=== PATIENT | female | born 1975 | race Caucasian/White ===

== ENCOUNTER → 2017-08-13 | Outpatient (CLI) | payer BC ==
[2017-08-13 10:38] VITALS: BP 133/91; PULSE 99; RESP 20; TEMP 98.4; BMI 40.8
[2017-08-13 12:47] LABS: HCT 42.5 % (34.0-46.0); HGB 14.4 gm/dL (11.4-16.0); MCHC 33.9 g/dL (31.0-37.0); MCV 91.4 fL (80.0-100.0); Mean Platelet Volume 6.7; Platelet Count 326 k/uL (150-450); RBC 4.65 m/uL (3.80-5.40); RDW 13.3 % (11.5-15.5); WBC 7.9 k/uL (3.8-10.6)
[2017-08-13 12:57] LABS: ALT 45 U/L (9-52); AST 34 U/L (14-36); Albumin 4.2 g/dL (3.5-5.0); Alkaline Phosphatase 57 U/L (38-126); Anion Gap 11 mmol/L; Blood Urea Nitrogen 13 mg/dL (7-17); Calcium 9.9 mg/dL (8.4-10.2); Carbon Dioxide 26 mmol/L (22-30); Chloride 102 mmol/L (98-107); Cholesterol 182 mg/dL (<200); Glucose 239 mg/dL (74-99); HDL Cholesterol 48 mg/dL (40-60); LDL Cholesterol,Calculated 77 mg/dL (0-99); Potassium 5.1 mmol/L (3.5-5.1); Sodium 139 mmol/L (137-145); Total Bilirubin 0.2 mg/dL (0.2-1.3); Total Protein 6.8 g/dL (6.3-8.2); Triglycerides 284 mg/dL (<150)
[2017-08-13 18:48] LABS: Iron Saturation 18.43 (12.00-45.00)
[2017-08-13 18:58] LABS: Vitamin D 25 Hydroxy 25.4 ng/mL (30.0-100.0)
[2017-08-13 19:18] LABS: Folate, Serum 12.5 ng/mL
[2017-08-13 22:43] LABS: Hemoglobin A1C 9.2 % (4.0-6.0)
--- NOTE | 2017-10-15 21:25 | P.HPBAR ---
Bariatric H&P - History & Physicial H&P Date: 08/13/17 History & Physicial: Visit/CC: laurelrio ERINN Patient initial contact: Initial weight: 114.85 kg Initial weight in pounds: 253.20 Height: 5 ft 6 in Initial BMI: 40.8 Last weight: Current weight: 114.85 kg Current weight in pounds: 253.20 Current BMI: 40.8 [place] body weight (based on NIH guidelines): 58.967 kg Excess body weight loss: 0.0% The patient is a 42 year-old F who presents for Bariatric Assessment. DATE OF CONSULTATION: 08/13/2017 CHIEF COMPLAINT: Initial bariatric assessment. HISTORY OF PRESENT ILLNESS: Lucinda Baez is a 42 year old female who presents with long standing history of morbid obesity. She has tried Weight Watchers, [employer] diet, including Eat to Live. She is looking into the gastric bypass. Her highest weight is 270 pounds with body mass index of 43.7. She initially lost 50 pounds. Her personal goal is to get to 140-pounds. She reports diarrhea when she gets nervous. She is under medical supervised weight loss since April 08. As a result of her obesity, she has developed diabetes type II. Her blood sugars are usually 200 in the morning. At her height of 5 foot 6, her ideal body weight is 154 pounds. Her body mass index is 40.9. She come in weighing 253 pounds. She is 99 pounds overweight. PAST MEDICAL HISTORY: 1. Morbid obesity. 2. Diabetes type 2. 3. Migraines. 4. Osteoarthritis of the knees. 5. Essential hypertension. 6. Polycystic ovarian disease. PAST SURGICAL HISTORY: 1. Denies any abdominal surgeries. MEDICATIONS: 1. Metformin. 2. Trulicity. 3. Glipizide. 4. Aldactone 5. Lantus 6. Motrin 7. Flexeril. 8. Excedrin ALLERGIES: SULFA. SOCIAL HISTORY: Lifelong nontobacco user. No current alcohol abuse. FAMILY HISTORY: Denies esophageal or stomach cancer. Has obesity in her family as well as diabetes. No Crohns or ulcerative colitis. No lupus. REVIEW OF SYSTEMS: CONSTITUTIONAL: [place] body weight of 154 pounds. Height of 5 feet 6 inches. Present weight of 253 pounds. Body mass index 40.9. She is 99 pounds overweight. Highest weight of 270 pounds with body mass index of 43.7. HEENT: She wears glasses. No reports of dysphagia. No reports of troubles with hearing. ENDOCRINE: Has diabetes type 2, insulin-dependent, controlled on more than insulin as well as 2 additional diabetic oral medications. No reports of hypothyroidism. RESPIRATORY: Has moderate snoring. No asthma. CARDIOVASCULAR: Has hypertensive disease. No recent chest pain or heart attack. GASTROINTESTINAL: Denies blood in stools. Has intermittent diarrhea. MUSCULOSKELETAL: Has osteoarthritis of the knees. No rheumatoid disease. NEURO: No recent stroke or seizure disorder. PSYCH: No depression. No suicidal ideation. HEMATOLOGIC: No recent DVTs or pulmonary emboli in herself or family. SKIN: No cancer. No rash. PHYSICAL EXAM: VITAL SIGNS: 5 feet 6 inches, 253 pounds, body mass index 40.9 Vital Signs 08/13/17 10:28 Temperature 98.4 F Pulse Rate 99 Respiratory 20 Rate Blood Pressure 133/91 GENERAL: Well-developed female in no acute distress. HEENT: No scleral icterus. Extraocular movements grossly intact. NECK: Supple without lymphadenopathy. CHEST: Nonlabored respirations with equal bilateral excursions. CARDIOVASCULAR: Regular rate and rhythm. 2+ pulses. ABDOMEN: Protuberant, soft, nontender, nondistended. MUSCULOSKELETAL: 1+ bilateral pitting edema. No clubbing or cyanosis. NEURO: No focal or lateralizing signs. Cranial nerves 2-12 grossly within normal limits. PSYCH: Appropriate affect. Alert and oriented to person, place and time. SKIN: Well perfused. Good skin turgor. LABS: Pending. ASSESSMENT: 1. Morbid obesity due to excess caloric intake. 2. Body mass index 43.7 to 40.9 3. Diabetes type 2, insulin dependent. 4. Migraines. 5. Osteoarthritis of the knees. 6. Essential hypertension. 7. Polycystic ovarian disease. 8. Sleep disturbance, sleep apnea. 9. Vitamin D deficiency. 10. Hypertriglyceridemia. PLAN: 1. Recommend obtaining a bariatric metabolic panel, as iatrogenic malnutrition with surgical procedures may exacerbate underlying nutritional deficiencies. 2. She is 100 pounds overweight with moderate distress on her joint replacements. I do agree with surgical weight loss for sustained weight loss. 3. Recommend psych assessment. 4. Also recommend cardiac risk assessment for any abnormal EKG 5. Recommend upper endoscopy with history of gastroesophageal reflux disease. 6. For obstructive sleep apnea, recommend evaluation and treatment. 7. Tight glycemic control advised. Minimum goal of HgbA1C less than 10 recommended. 8. The [place] [facility] Data was reviewed for all surgical options including the band, sleeve, gastric bypass, duodenal switch and gastric balloon were reviewed. Benefits and risks of each were reviewed in detail including complication risk score and comorbidity resolution. 9. Recommend followup upon completion of her bariatric metabolic panel and upper endoscopy. ADDENDUM: Laboratory Last Values WBC 7.9 k/uL (3.8-10.6) 08/13/17 11:30 RBC 4.65 m/uL (3.80-5.40) 08/13/17 11:30 Hgb 14.4 gm/dL (11.4-16.0) 08/13/17 11:30 Hct 42.5 % (34.0-46.0) 08/13/17 11:30 MCV 91.4 fL (80.0-100.0) 08/13/17 11:30 MCH 31.0 pg (25.0-35.0) 08/13/17 11:30 MCHC 33.9 g/dL (31.0-37.0) 08/13/17 11:30 RDW 13.3 % (11.5-15.5) 08/13/17 11:30 Plt Count 326 k/uL (150-450) 08/13/17 11:30 Sodium 139 mmol/L (137-145) 08/13/17 11:30 Potassium 5.1 mmol/L (3.5-5.1) 08/13/17 11:30 Chloride 102 mmol/L (98-107) 08/13/17 11:30 Carbon Dioxide 26 mmol/L (22-30) 08/13/17 11:30 Anion Gap 11 mmol/L 08/13/17 11:30 BUN 13 mg/dL (7-17) 08/13/17 11:30 Creatinine 0.60 mg/dL (0.52-1.04) 08/13/17 11:30 Est GFR (MDRD) Af Amer >60 (>60 ml/min/1.73 sqM) 08/13/17 11:30 Est GFR (MDRD) Non-Af >60 (>60 ml/min/1.73 sqM) 08/13/17 11:30 Glucose 239 mg/dL (74-99) H 08/13/17 11:[address] Glu mg/dL 217 08/13/17 11:30 Hemoglobin A1c 9.2 % (4.0-6.0) H 08/13/17 11:30 Calcium 9.9 mg/dL (8.4-10.2) 08/13/17 11:30 Iron 75 ug/dL (50-170) 08/13/17 11:30 TIBC 407 ug/dL (228-460) 08/13/17 11:30 Iron Saturation 18.43 (12.00-45.00) 08/13/17 11:30 Ferritin 65.0 ng/mL (10.0-291.0) 08/13/17 11:30 Total Bilirubin 0.2 mg/dL (0.2-1.3) 08/13/17 11:30 AST 34 U/L (14-36) 08/13/17 11:30 ALT 45 U/L (9-52) 08/13/17 11:30 Alkaline Phosphatase 57 U/L (38-126) 08/13/17 11:30 Total Protein 6.8 g/dL (6.3-8.2) 08/13/17 11:30 Albumin 4.2 g/dL (3.5-5.0) 08/13/17 11:30 Triglycerides 284 mg/dL (<150) H 08/13/17 11:30 Cholesterol 182 mg/dL (<200) 08/13/17 11:30 LDL Cholesterol, Calc 77 mg/dL (0-99) 08/13/17 11:30 HDL Cholesterol 48 mg/dL (40-60) 08/13/17 11:30 Vitamin B1 65 ug/L (38-122) 08/13/17 11:30 Vitamin B12 395.0 pg/mL (200.0-944.0) 08/13/17 11:30 Vitamin D 25-Hydroxy 25.4 ng/mL (30.0-100.0) L 08/13/17 11:30 Folate 12.5 ng/mL 08/13/17 11:30 TSH 2.110 mIU/L (0.465-4.680) 08/13/17 11:30 EKG EKG PERFORMED 08/13/17 11:30 Above reviewed consistent with poor glycemic control, elevated triglycerides, and Vitamind D deficiency. She will benefit from diabetes education and Vitamind D supplemenation. Also findings consistent with hypertriglyceridemia. Thank you for this kind consultation. Past Medical History History of Any Multi-Drug Resistant Organisms: None Reported Smoking Status: Never smoker Surgical - Exam Vital Signs Temp Pulse Resp BP 98.4 F 99 20 133/91 08/13/17 10:28 08/13/17 10:28 08/13/17 10:28 08/13/17 10:28 Results - Labs 08/13/17 11:30 08/13/17 11:30 Bariatric Checklist Checklist: Plan: Checklist: EGD: 1. Hiatal hernia: 2. H. Pylori: HgbA1c: Vitamin D: Smoking: Never smoker Primary care physician referral: Dr Saez Psychiatry clearance: Cardiology clearance: Sleep study: Diet journal: VTE risk score: VTE risk level: Rehab needs at discharge:
== END | disposition home or self-care (01) ==
LOC: BARWHC3 09:27
PROVIDERS: ATTEND Surgery Plastic and Reconstructive Surgery
DX: Z48.815 Encounter for surgical aftercare following surgery on the digestive system (principal); E66.01 Morbid (severe) obesity due to excess calories; E11.9 Type 2 diabetes mellitus without complications; G43.909 Migraine, unspecified, not intractable, without status migrainosus; M17.0 Bilateral primary osteoarthritis of knee; E28.2 Polycystic ovarian syndrome; G47.30 Sleep apnea, unspecified; E55.9 Vitamin D deficiency, unspecified; E89.1 Postprocedural hypoinsulinemia; D50.8 Other iron deficiency anemias; I11.9 Hypertensive heart disease without heart failure; E44.0 Moderate protein-calorie malnutrition; E78.1 Pure hyperglyceridemia; Z68.41 Body mass index [BMI] 40.0-44.9, adult; Z88.2 Allergy status to sulfonamides; Z79.899 Other long term (current) drug therapy; Z79.1 Long term (current) use of non-steroidal anti-inflammatories (NSAID); Z79.82 Long term (current) use of aspirin; Z79.4 Long term (current) use of insulin
CPT/HCPCS: 36415; 80053; 80061; 82306; 82607; 82728; 82746; 83036; 83540; 83550; 84425; 84443; 85027; 93005; 99201

== ENCOUNTER 2017-08-26 06:55 | Day surgery (SDC) | payer BC ==
[2017-08-24 15:48] VITALS: BMI 40.6
[~2017-08-26 06:55] MED LIST: LACTATED RINGERS 1,000 ML IV SCH
[2017-08-26 07:13] VITALS: TEMP 96.9
[2017-08-26 07:23] LABS: Glucose,Whole Blood 223 mg/dL (75-99)
[2017-08-26] MEDS ORDERED: PROPOFOL 10 MG/ML 20 ML VIAL IV ONE (07:33)
[2017-08-26] MEDS ORDERED: LIDOCAINE 1% INJ 10MG/ML (20 ML MDV) ONE (07:33)
--- NOTE | 2017-08-26 07:36 | P.GSHP ---
History of Present Illness H&P Date: 08/26/17 CHIEF COMPLAINT: GERD HISTORY OF PRESENT ILLNESS: The patient is a 42-year-old female who presents reports gastroesophageal reflux disease. Upper endoscopy was offered for further evaluation and management. PAST MEDICAL HISTORY: Please see list. PAST SURGICAL HISTORY: Please see list. MEDICATIONS: Please see list. ALLERGIES: Please see list. SOCIAL HISTORY: No illicit drug use FAMILY HISTORY: No reports of Crohn disease or ulcerative colitis. REVIEW OF ORGAN SYSTEMS: CONSTITUTIONAL: No reports of fevers or chills. GI: Denies any blood in stools or constipation. PHYSICAL EXAM: VITAL SIGNS: Stable GENERAL: Well-developed and pleasant in no acute distress. HEENT: No scleral icterus. Extraocular movements grossly intact. Moist buccal mucosa. NECK: Supple without lymphadenopathy. CHEST: Unlabored respirations. Equal bilateral excursions. CARDIOVASCULAR: Regular rate and rhythm. Distal 2+ pulses. ABDOMEN: Soft, nondistended. MUSCULOSKELETAL: No clubbing, cyanosis, or edema. ASSESSMENT: 1. Gastroesophageal reflux disease PLAN: 1. Recommend proceeding with an upper endoscopy Past Medical History Past Medical History: Diabetes Mellitus Additional Past Medical History / Comment(s): poly-cystic ovary syndrome, migraines. History of Any Multi-Drug Resistant Organisms: None Reported Past Surgical History: No Surgical Hx Reported Past Anesthesia/Blood Transfusion Reactions: Family History of Problems w/ Anesthesia Additional Past Anesthesia/Blood Transfusion Reaction / Comment(s): PT HAS NEVER RECEIVED ANESTHESIA. SISTER=PONV Past Psychological History: Anxiety Additional Psychological History / Comment(s): OCCASIONAL ANXIETY Smoking Status: Never smoker Past Alcohol Use History: Rare Past Drug Use History: None Reported - Past Family History Mother Family Medical History: No Reported History Medications and Allergies Home Medications Medication Instructions Recorded Confirmed Type Cholecalciferol [Vitamin D3] 2,000 tab PO DAILY 08/13/17 08/26/17 History Dulaglutide [Trulicity] 0.75 mg SQ WEEKLY 08/13/17 08/26/17 History metFORMIN HCL ER [Glucophage Xr] 2,000 mg PO AC-SUPPER 08/13/17 08/26/17 History Rtriolp-Uwha-Lstq [id number] 1 each PO Q6HR 08/24/17 08/26/17 History [Excedrin] Control Pills 1 tab PO AC-LUNCH 08/24/17 History Cyclobenzaprine (Unknown Dose 1 tab PO DAILY PRN 08/24/17 History Fiorinal (Unknown Dose) 1 tab PO DAILY PRN 08/24/17 08/26/17 History Ibuprofen [Motrin] 600 mg PO Q6HR PRN 08/24/17 08/26/17 History Insulin Glargine [Lantus] 16 unit SQ HS 08/24/17 08/26/17 History Magnesium 500 mg PO DAILY 08/24/17 08/26/17 History Spironolactone (Unknown Dose) 1 tab PO DAILY 08/24/17 08/26/17 History Vitamin B-12 (Unknown Dose) 1 tab PO DAILY 08/24/17 History diphenhydrAMINE [Benadryl] 25 mg PO HS PRN 08/24/17 08/26/17 History glipiZIDE [Glucotrol] 5 mg PO AC-BRKFST 08/24/17 08/26/17 History Allergies Allergy/AdvReac Type Severity Reaction Status Date / Time Sulfa (Sulfonamide Allergy Swelling Verified 08/24/17 15:32 Antibiotics) Surgical - Exam Vital Signs Temp Pulse Resp BP Pulse Ox 96.9 F L 100 20 144/89 94 L 08/26/17 07:11 08/26/17 07:11 08/26/17 07:11 08/26/17 07:11 08/26/17 07:11 Results - Labs Abnormal Lab Results - Last 24 Hours (Table) 08/26/17 Range/Units 07:18 POC Glucose (mg/dL) 223 H (75-99) mg/dL
[2017-08-26 07:53] VITALS: RESP 16
[2017-08-26] MEDS ORDERED: LABETALOL 5 MG/ML VIAL MDV IVP ONE ×2 (08:05→09:16)
--- NOTE | 2017-08-26 08:09 | P.PCN ---
Date of Procedure: 08/26/17 Description of Procedure: PREOPERATIVE DIAGNOSIS: Gastroesophageal reflux disease. Morbid obesity. POSTOPERATIVE DIAGNOSIS: Morbid obesity. Gastritis. Gastroesophageal reflux disease. OPERATION: Esophagogastroduodenoscopy with biopsies along antrum. SURGEON: Florencia Leigh MD ANESTHESIA: MAC. INDICATIONS: The patient is a 42-year-old female who presents with a history of reflux disease. Benefits and risks of the procedure were described. Informed consent was obtained. DESCRIPTION: The patient was brought into the endoscopy suite and laid in the left lateral decubitus position. An Olympus gastroscope was passed along the posterior oropharynx down to the distal esophagus where the squamocolumnar junction was encountered at 40 cm from the incisors. The stomach was entered and no bile reflux was found. Additional findings are listed below. Biopsies with cold forceps were obtained of the antrum. The first through third portion of the duodenum was examined and unremarkable. Retroflexion of the scope confirmed Hill grade 3 lower esophageal valve. Additionally, the pylorus was tight highly suspicious for gastric outlet obstruction. The squamocolumnar junction demostrated acute LA grade A erosive esophagitis. The stomach was desufflated. The patient tolerated the procedure well. FINDINGS: Squamocolumnar junction 40 cm from the incisors. Diaphragmatic hiatus at 40 cm. Gastritis along antrum. Hill grade 3 lower esophageal valve. LA grade A erosive esophagitis. No active duodenitis. RECOMMENDATIONS: Start medical therapy. Further recommendations pending results of pathology report. Upper endoscopy as needed. Will benefit from antireflux surgical procedure Plan - Discharge Summary Discharge Rx Participant: No New Discharge Prescriptions: New Metoclopramide [Reglan] 10 mg PO ACHS #30 tab No Action metFORMIN HCL ER [Glucophage Xr] 2,000 mg PO AC-SUPPER Dulaglutide [Trulicity] 0.75 mg SQ WEEKLY Cholecalciferol [Vitamin D3] 2,000 tab PO DAILY Magnesium 500 mg PO DAILY glipiZIDE [Glucotrol] 5 mg PO AC-BRKFST Spironolactone (Unknown Dose) 1 tab PO DAILY Fiorinal (Unknown Dose) 1 tab PO DAILY PRN PRN Reason: Migraine Headache Control Pills 1 tab PO AC-LUNCH Insulin Glargine [Lantus] 16 unit SQ HS Vitamin B-12 (Unknown Dose) 1 tab PO DAILY diphenhydrAMINE [Benadryl] 25 mg PO HS PRN PRN Reason: Insomnia Ibuprofen [Motrin] 600 mg PO Q6HR PRN PRN Reason: Pain Iqkfmry-Sotz-Ypsw [id number] [Excedrin] 1 each PO Q6HR Cyclobenzaprine (Unknown Dose 1 tab PO DAILY PRN PRN Reason: Pain Discharge Medication List Cholecalciferol [Vitamin D3] 2,000 tab PO DAILY 08/13/17 [History] Dulaglutide [Trulicity] 0.75 mg SQ WEEKLY 08/13/17 [History] metFORMIN HCL ER [Glucophage Xr] 2,000 mg PO AC-SUPPER 08/13/17 [History] Zkckmor-Cdtc-Yixr [id number] [Excedrin] 1 each PO Q6HR 08/24/17 [History] Control Pills 1 tab PO AC-LUNCH 08/24/17 [History] Cyclobenzaprine (Unknown Dose 1 tab PO DAILY PRN 08/24/17 [History] Fiorinal (Unknown Dose) 1 tab PO DAILY PRN 08/24/17 [History] Ibuprofen [Motrin] 600 mg PO Q6HR PRN 08/24/17 [History] Insulin Glargine [Lantus] 16 unit SQ HS 08/24/17 [History] Magnesium 500 mg PO DAILY 08/24/17 [History] Spironolactone (Unknown Dose) 1 tab PO DAILY 08/24/17 [History] Vitamin B-12 (Unknown Dose) 1 tab PO DAILY 08/24/17 [History] diphenhydrAMINE [Benadryl] 25 mg PO HS PRN 08/24/17 [History] glipiZIDE [Glucotrol] 5 mg PO AC-BRKFST 08/24/17 [History] Metoclopramide [Reglan] 10 mg PO ACHS #30 tab 08/26/17 [Rx] Follow up Appointment(s)/Referral(s): Florencia Leigh MD [STAFF PHYSICIAN] - 09/09/17 (Bariatric center) Patient Instructions/Handouts: *Surgery [facility] - (Anesthesia) Endoscopy Discharge Instructions, Upper Endoscopy (DC), Gastritis (GEN), Gastroesophageal Reflux Disease (DC) Discharge Disposition: HOME SELF-CARE
[2017-08-26] MEDS ORDERED: ENALAPRILAT 1.25 MG/ML 1 ML VIAL IVP ONE ×2 (08:24→08:45)
[2017-08-26 09:25] VITALS: BP 118/76; PULSE 77
== END 2017-08-26 09:35 | disposition home or self-care (01) ==
LOC: ORWHC2ENDO 06:55
PROVIDERS: ATTEND Surgery Plastic and Reconstructive Surgery
DX: K21.0 Gastro-esophageal reflux disease with esophagitis (principal); K29.70 Gastritis, unspecified, without bleeding; E11.9 Type 2 diabetes mellitus without complications; E28.2 Polycystic ovarian syndrome; F41.9 Anxiety disorder, unspecified; G43.909 Migraine, unspecified, not intractable, without status migrainosus; E66.01 Morbid (severe) obesity due to excess calories; Z68.41 Body mass index [BMI] 40.0-44.9, adult; Z88.2 Allergy status to sulfonamides; Z79.3 Long term (current) use of hormonal contraceptives; Z79.82 Long term (current) use of aspirin; Z79.4 Long term (current) use of insulin; Z79.899 Other long term (current) drug therapy
CPT/HCPCS: 43239; 81025; 88305; J2001; J2704

== ENCOUNTER → 2017-09-09 | Outpatient (CLI) | payer BC ==
[2017-09-09 15:45] VITALS: BP 134/86; PULSE 68; TEMP 98.2; BMI 41.2
--- NOTE | 2017-10-21 22:10 | P.PN ---
Subjective Progress Note Date: 09/09/17 DATE OF CONSULTATION: 09/09/2017 CHIEF COMPLAINT: Bariatric assessment. HISTORY OF PRESENT ILLNESS: Lucinda Baez is a 42 year old female who initially presented to the bariatric program August 2017, 1 month ago. She has been seeking a gastric bypass to correct her morbid obesity including diabetes. No reports of nausea or vomiting. She has completed upper endoscopy. No she presents for further follow-up. Her highest weight is 270 pounds with body mass index of 43.7. She is under medical supervised weight loss. At her height of 5 foot 6, her ideal body weight is 154 pounds. She comes in with 2 pound weight gain in 1 month. Her body mass index is 41.2. She come in weighing 255 pounds. She is 101 pounds overweight. Her blood sugars average over 200s. PAST MEDICAL HISTORY: 1. Morbid obesity. 2. Diabetes type 2. 3. Migraines. 4. Osteoarthritis of the knees. 5. Essential hypertension. 6. Polycystic ovarian disease. PAST SURGICAL HISTORY: 1. Denies any abdominal surgeries. 2. Upper endoscopy. MEDICATIONS: 1. Metformin. 2. Trulicity. 3. Glipizide. 4. Aldactone 5. Lantus 6. Motrin 7. Flexeril. 8. Excedrin ALLERGIES: SULFA. SOCIAL HISTORY: Lifelong nontobacco user. No current alcohol abuse. FAMILY HISTORY: Denies esophageal or stomach cancer. Has obesity in her family as well as diabetes. No Crohns or ulcerative colitis. No lupus. REVIEW OF SYSTEMS: CONSTITUTIONAL: [place] body weight of 154 pounds. Height of 5 feet 6 inches. Present weight of 255 pounds. Body mass index 41.2. She is 101 pounds overweight. Highest weight of 270 pounds with body mass index of 43.7. HEENT: She wears glasses. No reports of dysphagia. No reports of troubles with hearing. ENDOCRINE: Has diabetes type 2, insulin-dependent, controlled on more than insulin as well as 2 additional diabetic oral medications. No reports of hypothyroidism. RESPIRATORY: Has moderate snoring. No asthma. CARDIOVASCULAR: Has hypertensive disease. No recent chest pain or heart attack. GASTROINTESTINAL: Denies blood in stools. Has intermittent diarrhea. MUSCULOSKELETAL: Has osteoarthritis of the knees. No rheumatoid disease. NEURO: No recent stroke or seizure disorder. PSYCH: No depression. No suicidal ideation. HEMATOLOGIC: No recent DVTs or pulmonary emboli in herself or family. SKIN: No cancer. No rash. PHYSICAL EXAM: VITAL SIGNS: 5 feet 6 inches, 255 pounds, body mass index 41.2 Vital Signs Temp 98.2 F 09/09/17 15:40 Pulse 68 09/09/17 15:40 Resp BP 134/86 09/09/17 15:40 Pulse Ox GENERAL: Well-developed female in no acute distress. HEENT: No scleral icterus. Extraocular movements grossly intact. NECK: Supple without lymphadenopathy. CHEST: Nonlabored respirations with equal bilateral excursions. CARDIOVASCULAR: Regular rate and rhythm. 2+ pulses. ABDOMEN: Protuberant, soft, nontender, nondistended. MUSCULOSKELETAL: No clubbing or cyanosis or edema. NEURO: No focal or lateralizing signs. Cranial nerves 2-12 grossly within normal limits. PSYCH: Appropriate affect. Alert and oriented to person, place and time. SKIN: Well perfused. Good skin turgor. LABS: Reviewed consistent with poor glycemic control, elevated triglycerides, and Vitamin D deficiency. EKG: Reviewed and abnormal. EGD FINDINGS: Squamocolumnar junction 40 cm from the incisors. Diaphragmatic hiatus at 40 cm. Gastritis along antrum. Hill grade 3 lower esophageal valve. LA grade A erosive esophagitis. No active duodenitis. ASSESSMENT: 1. Morbid obesity due to excess caloric intake. 2. Body mass index 43.7 to 41.2 3. Diabetes type 2, insulin dependent, poorly controlled. 4. Migraines. 5. Osteoarthritis of the knees. 6. Essential hypertension. 7. Polycystic ovarian disease. 8. Sleep disturbance, sleep apnea. 9. Vitamin D deficiency. 10. Hypertriglyceridemia. PLAN: 1. Her EKG is abnormal. Recommend referral to appraiser irrigation tax. 2. Her blood sugars are poorly controlled with hemoglobin A1c of 9.2. Recommend referral to diabetic education. 3. Vitamin D supplementation 50,000 units weekly. 4. With a history of diabetes including gastroesophageal reflux disease, patient is looking into gastric bypass. Objective - Vital Signs Vital signs: Vital Signs Temp 98.2 F 09/09/17 15:40 Pulse 68 09/09/17 15:40 Resp BP 134/86 09/09/17 15:40 Pulse Ox Intake & Output 09/08/17 09/09/17 09/09/17 18:59 06:59 18:59 Weight 115.802 kg
== END | disposition home or self-care (01) ==
LOC: BARWHC3 14:27
PROVIDERS: ATTEND Surgery Plastic and Reconstructive Surgery
DX: Z48.815 Encounter for surgical aftercare following surgery on the digestive system (principal); E66.01 Morbid (severe) obesity due to excess calories; E11.9 Type 2 diabetes mellitus without complications; G43.909 Migraine, unspecified, not intractable, without status migrainosus; M17.0 Bilateral primary osteoarthritis of knee; I10 Essential (primary) hypertension; E55.9 Vitamin D deficiency, unspecified; E28.2 Polycystic ovarian syndrome; G47.30 Sleep apnea, unspecified; E78.1 Pure hyperglyceridemia; Z68.41 Body mass index [BMI] 40.0-44.9, adult; Z79.4 Long term (current) use of insulin; Z79.899 Other long term (current) drug therapy; Z79.1 Long term (current) use of non-steroidal anti-inflammatories (NSAID); Z79.82 Long term (current) use of aspirin; Z88.2 Allergy status to sulfonamides; Z87.19 Personal history of other diseases of the digestive system
CPT/HCPCS: 99211

== ENCOUNTER → 2017-10-12 | Outpatient (CLI) | payer BC ==
[2017-10-12 14:28] VITALS: BMI 41.1
== END | disposition home or self-care (01) ==
LOC: BARWHC3 08:58
PROVIDERS: ATTEND Surgery Plastic and Reconstructive Surgery
DX: E66.01 Morbid (severe) obesity due to excess calories (principal); E10.65 Type 1 diabetes mellitus with hyperglycemia; Z68.41 Body mass index [BMI] 40.0-44.9, adult; Z71.3 Dietary counseling and surveillance
CPT/HCPCS: 97804; 99211

== ENCOUNTER → 2017-10-15 | Outpatient (CLI) | payer BC ==
[2017-10-15 10:08] VITALS: BP 142/100; PULSE 112; TEMP 98.5; BMI 42.0
--- NOTE | 2017-12-05 19:04 | P.PN ---
Subjective Progress Note Date: 10/15/17 DATE: 10/15/2017 CHIEF COMPLAINT: Bariatric assessment. HISTORY OF PRESENT ILLNESS: Lucinda Baez is a 42 year old female who initially presented to the bariatric program August 2017. She has been seeking a gastric bypass to correct her morbid obesity including diabetes. She had an EKG which was abnormal. She has seen the director of curriculum and instruction and now needs a heart cath. Recent blood sugars are 150s. Separately, she complaints of headache. She drinks moderate soda. Her highest weight is 270 pounds with body mass index of 43.7. She is under medical supervised weight loss. At her height of 5 foot 6, her ideal body weight is 154 pounds. She comes in with 5 pound weight gain in 1 month. Her body mass index is 42.0 She come in weighing 260 pounds. She is 106 pounds overweight. PAST MEDICAL HISTORY: 1. Morbid obesity. 2. Diabetes type 2. 3. Migraines. 4. Osteoarthritis of the knees. 5. Essential hypertension. 6. Polycystic ovarian disease. PAST SURGICAL HISTORY: 1. Denies any abdominal surgeries. 2. Upper endoscopy. MEDICATIONS: 1. Metformin. 2. Trulicity. 3. Glipizide. 4. Aldactone 5. Lantus 6. Motrin 7. Flexeril. 8. Excedrin ALLERGIES: SULFA. SOCIAL HISTORY: Lifelong nontobacco user. No current alcohol abuse. FAMILY HISTORY: Denies esophageal or stomach cancer. Has obesity in her family as well as diabetes. No Crohns or ulcerative colitis. No lupus. REVIEW OF SYSTEMS: CONSTITUTIONAL: [place] body weight of 154 pounds. Height of 5 feet 6 inches. Present weight of 260 pounds. Body mass index 42.0. She is 106 pounds overweight. Highest weight of 270 pounds with body mass index of 43.7. HEENT: She wears glasses. No reports of dysphagia. No reports of troubles with hearing. ENDOCRINE: Has diabetes type 2, insulin-dependent, controlled on more than insulin as well as 2 additional diabetic oral medications. No reports of hypothyroidism. RESPIRATORY: Has moderate snoring. No asthma. CARDIOVASCULAR: Has hypertensive disease. No recent chest pain or heart attack. GASTROINTESTINAL: Denies blood in stools. Has intermittent diarrhea. MUSCULOSKELETAL: Has osteoarthritis of the knees. No rheumatoid disease. NEURO: No recent stroke or seizure disorder. PSYCH: No depression. No suicidal ideation. HEMATOLOGIC: No recent DVTs or pulmonary emboli in herself or family. SKIN: No cancer. No rash. PHYSICAL EXAM: VITAL SIGNS: 5 feet 6 inches, 260 pounds, body mass index 42.0. Vital Signs Temp 98.5 F 10/15/17 10:04 Pulse 112 H 10/15/17 10:04 Resp BP 142/100 10/15/17 10:04 Pulse Ox GENERAL: Well-developed female in no acute distress. HEENT: No scleral icterus. Extraocular movements grossly intact. NECK: Supple without lymphadenopathy. CHEST: Nonlabored respirations with equal bilateral excursions. CARDIOVASCULAR: Tachycardic. 2+ pulses. ABDOMEN: Protuberant, soft, nontender, nondistended. MUSCULOSKELETAL: No clubbing or cyanosis or edema. NEURO: No focal or lateralizing signs. Cranial nerves 2-12 grossly within normal limits. PSYCH: Appropriate affect. Alert and oriented to person, place and time. SKIN: Well perfused. Good skin turgor. ASSESSMENT: 1. Morbid obesity due to excess caloric intake. 2. Body mass index 43.7 to 42.0. 3. Diabetes type 2, insulin dependent, poorly controlled. 4. Migraines. 5. Osteoarthritis of the knees. 6. Essential hypertension. 7. Polycystic ovarian disease. 8. Sleep disturbance, sleep apnea. 9. Vitamin D deficiency. 10. Hypertriglyceridemia. 11. Supraventricular tachycardia PLAN: 1. She is pending cardiac catheterization and evaluation. 2. She is pending primary care provider letter. 3. Recommend diabetic education. 4. She is looking into the gastric bypass. Recommend 2 week high-protein low- calorie diet. Objective - Vital Signs Vital signs: Vital Signs Temp 98.5 F 10/15/17 10:04 Pulse 112 H 10/15/17 10:04 Resp BP 142/100 10/15/17 10:04 Pulse Ox Intake & Output 10/14/17 10/15/17 10/15/17 18:59 06:59 18:59 Weight 117.979 kg
== END | disposition home or self-care (01) ==
LOC: BARWHC3 09:26
PROVIDERS: ATTEND Surgery Plastic and Reconstructive Surgery
DX: E66.01 Morbid (severe) obesity due to excess calories (principal); E11.9 Type 2 diabetes mellitus without complications; G43.909 Migraine, unspecified, not intractable, without status migrainosus; M17.0 Bilateral primary osteoarthritis of knee; I10 Essential (primary) hypertension; E28.2 Polycystic ovarian syndrome; G47.30 Sleep apnea, unspecified; E55.9 Vitamin D deficiency, unspecified; E78.1 Pure hyperglyceridemia; I47.1 Supraventricular tachycardia; Z79.84 Long term (current) use of oral hypoglycemic drugs; Z68.41 Body mass index [BMI] 40.0-44.9, adult; Z79.899 Other long term (current) drug therapy; Z79.4 Long term (current) use of insulin; Z88.2 Allergy status to sulfonamides; Z79.1 Long term (current) use of non-steroidal anti-inflammatories (NSAID); Z83.3 Family history of diabetes mellitus
CPT/HCPCS: 99211

== ENCOUNTER → 2017-12-10 | Outpatient (CLI) | payer BC ==
[2017-12-10 15:40] LABS: Basophils % (A) 0 %; Eosinophils # (A) 0.2 k/uL (0-0.7); Eosinophils % (A) 2 %; HCT 44.4 % (34.0-46.0); HGB 15.1 gm/dL (11.4-16.0); Lymphocytes # (A) 2.8 k/uL (1.0-4.8); Lymphocytes % (A) 31 %; MCH 29.6 pg (25.0-35.0); Mean Platelet Volume 6.6; Monocytes # (A) 0.3 k/uL (0-1.0); Monocytes % (A) 4 %; Neutrophils # (A) 5.6 k/uL (1.3-7.7); Neutrophils % (A) 62 %; Platelet Count 327 k/uL (150-450); RDW 12.5 % (11.5-15.5)
[2017-12-10 16:01] LABS: ALT 125 U/L (9-52); AST 80 U/L (14-36); Albumin 4.6 g/dL (3.5-5.0); Alkaline Phosphatase 55 U/L (38-126); Anion Gap 12 mmol/L; Blood Urea Nitrogen 16 mg/dL (7-17); Calcium 10.4 mg/dL (8.4-10.2); Carbon Dioxide 26 mmol/L (22-30); Chloride 101 mmol/L (98-107); Glucose 123 mg/dL (74-99); Potassium 4.7 mmol/L (3.5-5.1); Sodium 139 mmol/L (137-145); Total Bilirubin 0.5 mg/dL (0.2-1.3); Total Protein 7.5 g/dL (6.3-8.2)
== END ==
LOC: LABPAT 15:17
PROVIDERS: ATTEND Surgery Plastic and Reconstructive Surgery
DX: Z01.812 Encounter for preprocedural laboratory examination (principal)
CPT/HCPCS: 36415; 80053; 85025

== ENCOUNTER 2017-12-21 07:30 | Inpatient (IN) | payer BC ==
--- NOTE | 2017-12-20 12:43 | P.GSHP ---
History of Present Illness H&P Date: 12/21/17 DATE: 12/21/2017 CHIEF COMPLAINT: Morbid obesity HISTORY OF PRESENT ILLNESS: Lucinda Baez is a 42 year old female who initially presented to the bariatric program August 2017. She has been seeking a gastric bypass to correct her morbid obesity including diabetes. She has completed diabetic education. She had an EKG which was abnormal followed by a normal stress test. She had been cleared by her body recall instructor October 2017. Her highest weight is 270 pounds with body mass index of 43.7. She completed medical supervised weight loss. At her height of 5 foot 6, her ideal body weight is 154 pounds. PAST MEDICAL HISTORY: 1. Morbid obesity. 2. Diabetes type 2. 3. Migraines. 4. Osteoarthritis of the knees. 5. Essential hypertension. 6. Polycystic ovarian disease. PAST SURGICAL HISTORY: 1. Denies any abdominal surgeries. 2. Upper endoscopy. MEDICATIONS: 1. Metformin. 2. Trulicity. 3. Glipizide. 4. Aldactone 5. Lantus 6. Motrin 7. Flexeril. 8. Excedrin ALLERGIES: SULFA. SOCIAL HISTORY: Lifelong nontobacco user. No current alcohol abuse. FAMILY HISTORY: Denies esophageal or stomach cancer. Has obesity in her family as well as diabetes. No Crohns or ulcerative colitis. No lupus. REVIEW OF SYSTEMS: CONSTITUTIONAL: [place] body weight of 154 pounds. Height of 5 feet 6 inches. Present weight of 260 pounds. Body mass index 42.0. She is 106 pounds overweight. Highest weight of 270 pounds with body mass index of 43.7. HEENT: She wears glasses. No reports of dysphagia. No reports of troubles with hearing. ENDOCRINE: Has diabetes type 2, insulin-dependent, controlled on more than insulin as well as 2 additional diabetic oral medications. No reports of hypothyroidism. RESPIRATORY: Has moderate snoring. No asthma. CARDIOVASCULAR: Has hypertensive disease. No recent chest pain or heart attack. GASTROINTESTINAL: Denies blood in stools. Has intermittent diarrhea. MUSCULOSKELETAL: Has osteoarthritis of the knees. No rheumatoid disease. NEURO: No recent stroke or seizure disorder. PSYCH: No depression. No suicidal ideation. HEMATOLOGIC: No recent DVTs or pulmonary emboli in herself or family. SKIN: No cancer. No rash. PHYSICAL EXAM: VITAL SIGNS: 5 feet 6 inches, 260 pounds, body mass index 42.0. GENERAL: Well-developed female in no acute distress. HEENT: No scleral icterus. Extraocular movements grossly intact. NECK: Supple without lymphadenopathy. CHEST: Nonlabored respirations with equal bilateral excursions. CARDIOVASCULAR: Regular rate. Regular rhythm. 2+ pulses. ABDOMEN: Protuberant, soft, nontender, nondistended. MUSCULOSKELETAL: No clubbing or cyanosis or edema. NEURO: No focal or lateralizing signs. Cranial nerves 2-12 grossly within normal limits. PSYCH: Appropriate affect. Alert and oriented to person, place and time. SKIN: Well perfused. Good skin turgor. ASSESSMENT: 1. Morbid obesity due to excess caloric intake. 2. Body mass index 43.7, initial. 3. Diabetes type 2, insulin dependent. 4. Migraines. 5. Osteoarthritis of the knees. 6. Essential hypertension. 7. Polycystic ovarian disease. 8. Sleep disturbance, sleep apnea. 9. Vitamin D deficiency. 10. Hypertriglyceridemia. 11. Supraventricular tachycardia PLAN: 1. Bariatric options were reviewed which she selected for a gastric bypass. Benefits and risks were described. Risks including bleeding, infection, need for further surgery, leaks including nutritional deficiencies were described. 2. DVT prophylaxis. 3. Antibiotic prophylaxis. 4. Inpatient hospitalization over 2 nights described. 5. Robotic-assisted approach reviewed. Past Medical History Past Medical History: Diabetes Mellitus, Hypertension, Neurologic Disorder Additional Past Medical History / Comment(s): poly-cystic ovary syndrome, migraines. History of Any Multi-Drug Resistant Organisms: None Reported Past Surgical History: No Surgical Hx Reported Additional Past Surgical History / Comment(s): egd Past Anesthesia/Blood Transfusion Reactions: No Reported Reaction, Family History of Problems w/ Anesthesia Additional Past Anesthesia/Blood Transfusion Reaction / Comment(s): . SISTER= PONV Smoking Status: Never smoker - Past Family History Mother Family Medical History: No Reported History Medications and Allergies Home Medications Medication Instructions Recorded Confirmed Type Dulaglutide [Trulicity] 1.25 mg SQ MO 08/13/17 12/14/17 History metFORMIN HCL ER [Glucophage Xr] 2,000 mg PO AC-SUPPER 08/13/17 12/14/17 History Lddyeio-Eait-Axjc [phone] 1 each PO Q6HR 08/24/17 12/14/17 History [Excedrin] Ibuprofen [Motrin] 600 mg PO Q6HR PRN 08/24/17 12/14/17 History Insulin Glargine [Lantus] 30 unit SQ HS 08/24/17 12/14/17 History Magnesium 500 mg PO DAILY 08/24/17 12/14/17 History diphenhydrAMINE [Benadryl] 25 mg PO HS PRN 08/24/17 12/14/17 History glipiZIDE [Glucotrol] 10 mg PO AC-BRKFST 08/24/17 12/14/17 History Spironolactone [Aldactone] 50 mg PO DAILY 10/15/17 12/14/17 History Cholecalciferol (Vitamin D3) 10,000 unit PO DAILY 12/14/17 12/14/17 History [Vitamin D3] Cyclobenzaprine [Flexeril] 10 mg PO HS 12/14/17 12/14/17 History Multivitamins, Thera [Multivitamin 1 tab PO DAILY 12/14/17 12/14/17 History (formulary)] Allergies Allergy/AdvReac Type Severity Reaction Status Date / Time Sulfa (Sulfonamide Allergy Swelling Verified 12/14/17 09:18 Antibiotics)
[~2017-12-21 07:30] MED LIST changes: +ACETAMINOPHEN IV (For NPO) 1,000 MG in EMPTY BAG 1 BAG IVPB ONE; +ALVIMOPAN 12 MG CAPSULE PO ONE; +CHLORHEXIDINE GLUCONATE 15 ML CUP MUCOUS MEM ONE; +DEXAMETHASONE SOD PHOSPHATE 10 MG/ML 1 ML VIAL IV ONE; +ENOXAPARIN 40 MG/0.4 ML SYRINGE SQ STA; -LACTATED RINGERS 1,000 ML IV SCH; +MIDAZOLAM 2 MG/2 ML VIAL IV PRN; +PANTOPRAZOLE 40 MG/10 ML VIAL IV STA; +SCOPOLAMINE 1.5MG/72HR PATCH TRANSDERM STA; +ceFAZolin IN SWFI 2 GM/20 ML SYRINGE IVP ONE
[2017-12-21] MEDS ORDERED: LIDOCAINE 1% 20 ML VIAL (10MG/ML) FOR IV START INTRADERMA ONE (11:01)
[2017-12-21] MEDS ORDERED: ONDANSETRON 4 MG/2 ML VIAL IVP ONE (11:06)
[2017-12-21] MEDS: LACTATED RINGERS 1,000 ML IV SCH (11:07)
[2017-12-21 11:24] LABS: Glucose,Whole Blood 76 mg/dL (75-99)
[2017-12-21 11:27] LABS: Potassium 4.7 mmol/L (3.5-5.1)
[2017-12-21] MEDS ORDERED: PROPOFOL 10 MG/ML 20 ML VIAL IV ONE (12:17)
[2017-12-21] MEDS ORDERED: NEOSTIGMINE 1 MG/ML 10 ML VIAL ONE (12:17)
[2017-12-21] MEDS ORDERED: LIDOCAINE 1% INJ 10MG/ML (20 ML MDV) ONE (12:17)
[2017-12-21] MEDS ORDERED: ROCURONIUM BROMIDE 10 MG/ML 10 ML VIAL IV ONE (12:17)
[2017-12-21] MEDS ORDERED: ONDANSETRON 4 MG/2 ML VIAL ONE (12:17)
[2017-12-21] MEDS ORDERED: SUCCINYLCHOLINE CHLORIDE VIAL 200 MG/10 ML VIAL IV ONE (12:17)
[2017-12-21] MEDS ORDERED: fentaNYL (PF) 50 MCG/ML 2 ML AMP ONE (12:17)
[2017-12-21] MEDS ORDERED: GLYCOPYRROLATE 0.2 MG/ML 2 ML VIAL ONE (12:17)
[2017-12-21] MEDS ORDERED: MEPERIDINE 50 MG/ML SYRINGE ONE (12:17)
[2017-12-21] MEDS ORDERED: MIDAZOLAM 2 MG/2 ML VIAL ONE (12:17)
[2017-12-21] MEDS ORDERED: BUPIVACAINE (PF) 0.25% 30 ML VIAL SQ ONE (12:35)
--- NOTE | 2017-12-21 15:50 | P.PCN ---
Date of Procedure: 12/21/17 Preoperative Diagnosis: Morbid obesity Postoperative Diagnosis: Same Procedure(s) Performed: Robotic gastric bypass, 100 cm Pedro limb, intraoperative EGJ Anesthesia: GETA, local Surgeon: Florencia Leigh Estimated Blood Loss (ml): 10 Pathology: none sent Condition: stable Disposition: floor Operative Findings: 1. Fatty liver disease 2. Negative leak test 3. Thoracic length, xiphoid to umbilicus 17 cm 4. Four-port technique 5. Reinforcement sutures at 3:00 and 11:00
[2017-12-21] MEDS: fentaNYL (PF) 50 MCG/ML 2 ML AMP IV PRN ×2 (16:12→16:53)
[2017-12-21 16:28] LABS: Glucose,Whole Blood 200 mg/dL (75-99)
[2017-12-21] MEDS ORDERED: MEPERIDINE 50 MG/ML SYRINGE IVP ONE (16:59)
[2017-12-21 17:18] VITALS: RESP 16
[2017-12-21] MEDS: MORPHINE SULFATE/PF 10MG/10ML VL IVP PRN ×3 (18:23→22:16)
[2017-12-21] MEDS: SODIUM CHLORIDE 0.9% 1,000 ML IV SCH (18:24)
[2017-12-21 19:05] VITALS: BMI 39.2
[2017-12-21] MEDS ORDERED: NALOXONE 0.4 MG/ML 1 ML VIAL IV PRN (21:51)
[2017-12-21] MEDS ORDERED: ONDANSETRON 4 MG/2 ML VIAL IVP PRN (21:51)
[2017-12-21] MEDS ORDERED: diphenhydrAMINE 50 MG/ML 1 ML VIAL IVP PRN (21:51)
[2017-12-21] MEDS ORDERED: ACETAMINOPHEN IV (For NPO) 1,000 MG in EMPTY BAG 1 BAG IVPB ONE (22:00)
[2017-12-21 23:58] LABS: Glucose,Whole Blood 137 mg/dL (75-99)
[2017-12-22] MEDS: SIMETHICONE 40 MG/0.6 ML DROPS 2,000 MG/30 ML BOTTLE PO SCH ×3 (00:03→12:55)
[2017-12-22] MEDS: AMPICILLIN-SULBACTAM 3 GM in SODIUM CHLORIDE 0.9% 100 ML IVPB SCH ×2 (00:03→04:52)
[2017-12-22] MEDS: HYOSCYAMINE ORAL DROPS 1.875 MG/15 ML BOTTLE PO SCH ×3 (00:03→12:54)
[2017-12-22] MEDS: 0.9% NACL WITH KCL 20 MEQ/L 1,000 ML IV SCH ×2 (00:03→05:39)
[2017-12-22] MEDS: INSULIN ASPART 100 UNIT/ML 1 ML 10 ML VIAL SQ SCH ×2 (01:08→05:42)
[2017-12-22] MEDS: SODIUM CHLORIDE 0.9% 1,000 ML IV SCH (01:09)
[2017-12-22] MEDS: MORPHINE SULFATE/PF 10MG/10ML VL IVP PRN ×2 (01:19→04:52)
[2017-12-22 05:37] LABS: Glucose,Whole Blood 150 mg/dL (75-99)
[2017-12-22 06:57] LABS: Basophils % (A) 0 %; Eosinophils # (A) 0.1 k/uL (0-0.7); Eosinophils % (A) 0 %; HCT 36.6 % (34.0-46.0); Lymphocytes # (A) 1.1 k/uL (1.0-4.8); Lymphocytes % (A) 8 %; MCH 30.7 pg (25.0-35.0); MCHC 35.6 g/dL (31.0-37.0); MCV 86.1 fL (80.0-100.0); Mean Platelet Volume 6.4; Monocytes # (A) 0.5 k/uL (0-1.0); Monocytes % (A) 4 %; Neutrophils # (A) 12.1 k/uL (1.3-7.7); Neutrophils % (A) 87 %; Platelet Count 280 k/uL (150-450); RBC 4.25 m/uL (3.80-5.40); RDW 12.9 % (11.5-15.5); WBC 13.9 k/uL (3.8-10.6)
[2017-12-22 07:14] LABS: Anion Gap 9 mmol/L; Blood Urea Nitrogen 9 mg/dL (7-17); Calcium 8.8 mg/dL (8.4-10.2); Carbon Dioxide 20 mmol/L (22-30); Chloride 108 mmol/L (98-107); Phosphorus 3.1 mg/dL (2.5-4.5); Potassium 4.4 mmol/L (3.5-5.1); Sodium 137 mmol/L (137-145)
--- NOTE | 2017-12-22 07:42 | P.PN ---
Subjective Progress Note Date: 12/22/17 CHIEF COMPLAINT: Morbid obesity HISTORY OF PRESENT ILLNESS: Lucinda Baez is a 42 year old female s/p gastric bypass. She complains primarily of back pain. No reports of nausea or vomiting. Intraoperative leak test was negative for leaks. She reports appropriated left upper incisional discomfort. No fevers or chill.s PHYSICAL EXAM: GENERAL: Well-developed female in no acute distress. HEENT: No scleral icterus. Extraocular movements grossly intact. NECK: Supple without lymphadenopathy. CHEST: Nonlabored respirations with equal bilateral excursions. CARDIOVASCULAR: Regular rate. Regular rhythm. 2+ pulses. ABDOMEN: Soft, nondistended. Dressing intact. Incisions well-approximated. No peritonitis. MUSCULOSKELETAL: No clubbing or cyanosis or edema. NEURO: No focal or lateralizing signs. Cranial nerves 2-12 grossly within normal limits. PSYCH: Appropriate affect. Alert and oriented to person, place and time. SKIN: Well perfused. Good skin turgor. ASSESSMENT: 1. Morbid obesity due to excess caloric intake. 2. Body mass index 43.7, initial. 3. Diabetes type 2, insulin dependent. 4. Migraines. 5. Osteoarthritis of the knees. 6. Essential hypertension. 7. Polycystic ovarian disease. 8. Sleep disturbance, sleep apnea. 9. Vitamin D deficiency. 10. Hypertriglyceridemia. 11. Supraventricular tachycardia PLAN: 1. Bariatric clears. 2. Adjustment of diabetic medications. 3. Possible discharge home when tolerating diet. 4. Follow up in bariatric office in 48 hrs. Objective - Vital Signs Vital signs: Vital Signs Temp 98.1 F 12/22/17 00:57 Pulse 112 H 12/22/17 00:57 Resp 16 12/22/17 00:57 BP 116/75 12/22/17 00:57 Pulse Ox 95 12/22/17 00:57 Intake & Output 12/21/17 12/22/17 12/22/17 18:59 06:59 18:59 Intake Total 1550 Output Total 210 1700 Balance 1340 -1700 Weight 110.1 kg Intake: IV 1550 Output: Urine 200 1700 Estimated Blood Loss 10 Other: Voiding Method Indwelling Catheter - Labs CBC & Chem 7: 12/22/17 06:19 12/22/17 06:19 Labs: Abnormal Lab Results - Last 24 Hours (Table) 03/12/21/17 12/22/17 Range/Units 16:25 23:56 05:34 WBC (3.8-10.6) k/uL Neutrophils # (1.3-7.7) k/uL Chloride (98-107) mmol/L Carbon Dioxide (22-30) mmol/L POC Glucose (mg/dL) 200 H 137 H 150 H (75-99) mg/dL 12/22/17 12/22/17 Range/Units 06:19 06:19 WBC 13.9 H (3.8-10.6) k/uL Neutrophils # 12.1 H (1.3-7.7) k/uL Chloride 108 H (98-107) mmol/L Carbon Dioxide 20 L (22-30) mmol/L POC Glucose (mg/dL) (75-99) mg/dL Assessment and Plan (1) Morbid obesity due to excess calories Current Visit: Yes Status: Acute Code(s): E66.01 - MORBID (SEVERE) OBESITY DUE TO EXCESS CALORIES SNOMED Code(s): 972341252 (2) Obesity, morbid, BMI 40.0-49.9 Current Visit: Yes Status: Acute Code(s): E66.01 - MORBID (SEVERE) OBESITY DUE TO EXCESS CALORIES SNOMED Code(s): 837881752 (3) Sleep apnea Current Visit: Yes Status: Acute Code(s): G47.30 - SLEEP APNEA, UNSPECIFIED SNOMED Code(s): 55024379 (4) Diabetes type 2, controlled Current Visit: Yes Status: Acute Code(s): E11.9 - TYPE 2 DIABETES MELLITUS WITHOUT COMPLICATIONS SNOMED Code(s): 92450426 (5) Hypertension Current Visit: Yes Status: Acute Code(s): I10 - ESSENTIAL (PRIMARY) HYPERTENSION SNOMED Code(s): 92905927
[2017-12-22] MEDS: HYDROcodone/APAP 15 ML SOLUTION PO PRN ×2 (07:54→12:55)
[2017-12-22] MEDS ORDERED: 1: MVI, ADULT NO.4 WITH VIT K 10 ML, THIAMINE 100 MG, FOLIC ACID 1 MG, POTASSIUM CHLORID IV SCH ×6 (08:00)
[2017-12-22] MEDS ORDERED: ALBUTEROL NEBULIZED 2.5 MG/3 ML INHALATION SCH (08:00)
[2017-12-22 10:22] VITALS: BP 118/77; PULSE 95; TEMP 98.4
[2017-12-22] MEDS ORDERED: MORPHINE ORAL SOLN 10 MG/5 ML CUP PO PRN ×2 (11:38→11:39)
[2017-12-23] MEDS ORDERED: BISACODYL 5 MG TABLET.DR PO PRN (08:00)
--- NOTE | 2017-12-27 22:00 | P.OP ---
Date of Procedure: 12/21/17 Description of Procedure: Date of Procedure: 12/21/17 SURGEON: BRYON REYES MD BIRD KEEPER: 1. ZI MACHADO 2. LARA SARAH 3. EM CASTLE PREOPERATIVE DIAGNOSES: 1. Morbid obesity due to excess caloric intake. 2. Body mass index 43.7, initial. 3. Diabetes type 2, insulin dependent. 4. Migraines. 5. Osteoarthritis of the knees. 6. Essential hypertension. 7. Polycystic ovarian disease. 8. Sleep disturbance, sleep apnea. 9. Vitamin D deficiency. 10. Hypertriglyceridemia. 11. Supraventricular tachycardia POSTOPERATIVE DIAGNOSES: 1. Morbid obesity due to excess caloric intake. 2. Body mass index 43.7, initial. 3. Diabetes type 2, insulin dependent. 4. Migraines. 5. Osteoarthritis of the knees. 6. Essential hypertension. 7. Polycystic ovarian disease. 8. Sleep disturbance, sleep apnea. 9. Vitamin D deficiency. 10. Hypertriglyceridemia. 11. Supraventricular tachycardia 12. Hepatomegaly 13. Liver disease 14. Abnormal liver enzymes. OPERATION: 1. Robotic assisted da Gil Xi laparoscopic Corina-en-Y gastric bypass, 100 cm antecolic antegastric Corina limb, with 25 mm EEA. 2. Intraoperative esophagogastrojejunoscopy. Anesthesia: GETA, local Surgeon: Bryon Reyes Estimated Blood Loss (ml): 10 Pathology: none sent Condition: stable Disposition: floor INDICATIONS: Lucinda Baez is a 42 year old female who initially presented to the bariatric program August 2017. She has been seeking a gastric bypass to correct her morbid obesity including diabetes. She has completed diabetic education. She had an EKG which was abnormal followed by a normal stress test. She had been cleared by her winery cellar hand October 2017. Her highest weight is 270 pounds with body mass index of 43.7. She completed medical supervised weight loss. At her height of 5 foot 6, her ideal body weight is 154 pounds. A second-generation bariatric consent form was described in detail including the possibility of protein malnutrition, leaks, gastrojejunal stricture, venous thrombosis, need for further surgery for which she demonstrated understanding. Benefits and risks of the procedure were described at length. Informed consent was obtained. DESCRIPTION: The patient was brought into the operating room theater. She was placed on a split leg table. She had received Lovenox subcutaneously for DVT prophylaxis. Additionally she Peridex oral solution as an oral decontaminant was placed per anesthesia. After general induction, the abdomen was prepped and draped in standard sterile fashion. Ioban draping was placed along the abdomen. A robotic da Gil Xi system was prepped and primed. The xiphoid to umbilicus was measured of 17 cm. Proposed port sites were marked with indelible marker along the anterior axillary line bilaterally, mid clavicular line bilaterally with each port marked 10 cm from each other. The medical assistant instructor port was marked along the right lateral lower abdominal wall. The robotic stapler port was marked for the right midclavicular line including along the left midclavicular line. A 5 mm 0 degrees laparoscopic trocar entry was performed along the left upper quadrant. The abdomen was insufflated to 15 mmHg pressure, which she tolerated well. Diagnostic laparoscopy demonstrated no injury to bowel, viscera, or mesentery. The liver surface was remarkable for fatty liver disease and hepatomegaly. An 8 mm camera port was placed left lateral to the umbilicus at the epigastrium , 17 cm distal to the xiphoid. Next, 12-mm robot stapler port was placed along the right mid abdomen. An 12 mm port was exchanged along the left upper quadrant. An 8 mm port was placed on the left lateral abdominal wall under direct localization. Please note that the ports were placed 18 to 20 cm away from the target anatomy of the stomach. Care was taken to check that each robotic arm was safely away from collision with the bed or the patient. At the epigastrium, a medium sized Cindi liver retractor was placed under direct visualization with the Iron Personnel Technician placed under the right shoulder of the patient. The patient was repositioned in reverse Trendelenburg position at 14-degress after lowering the bed. The robot was docked over the patient. Using grasper for arm 1, a grasper for arm 3, including vessel sealer for arm 4 , the robotic system was docked and primed as described. Instruments were interchanged by the medical assistant instructor including endoscissors, the needle home delivery driver, and stapler. I had sat at the console. Next, the transverse mesocolon was reflected into the upper abdomen preparing for the jejunojejunostomy portion of the case. The ligament of Treitz was identified and measured 60 cm antegrade and marked using 2-0 Vicryl. The jejunum was divided at the 60 cm point using 45-mm white loads above the suture measurement. The biliopancreatic limb was held in place. The Corina limb was measured 100 cm in an antegrade fashion to avoid tension along the proposed gastrojejunal anastomosis. At 100 cm along the anti-mesenteric border of the Corina limb, a jejunojejunostomy was proposed whereby enterotomies were created along the biliopancreatic limb including the Corina limb using a Bovie cautery. A stay suture of 2-0 Vicryl was placed to align and create the anastomosis. The enterotomies along the anti-mesenteric borders were created followed by unidirectional fire from the patient's right side using 2 - 45 mm white load Smart technology robotic stapler. The jejunojejunostomy was found to be hemostatic. The enterotomy was closed after horizontal mattress stitch of 2-0 silk used to elevate the enterotomy followed by closure with the robotic stapler white load. The jejunal limb was temporarily tacked along the left upper quadrant. Attention was now brought to the creation of the gastrojejunostomy. Along the lesser curvature of the stomach between the second and third veins, dissection was made along the retrogastric space to allow first firing of the robotic staple. Moderate posterior stomach were identified, hence increasing the complexity of her case. Blue loads of 45 mm staplers were used to divide the stomach to create the gastric pouch. The patient was then prepared for placement of a Orvil. The patient was Mallampati 2. A 25-mm Orvil was selected for placement by the nurse manager managed care. The Orvil tubing was placed anterior to the staple line of the gastric pouch and brought out through the left inferior lateral port. I re-scrubbed into the case. The robotic arms were temporarily undocked. The Orvil was then carefully and successfully navigated with the help of the nurse manager managed care into the gastric pouch. The sutures were identified and divided. The tubing was from the 25 mm anvil. As the Orvil had been placed, the blind jejunal limb was brought proximally into the upper abdomen. No torsion was found upon the Corina limb. No tension was identified as the limb was brought along the upper abdomen. The blind jejunal limb was previously opened using endo -scissors with cautery. The 25-mm EEA stapler was brought through the left anterior lateral port site from the left side. The EEA stapler was brought through the open jejunal limb and its needle was deployed at the antimesenteric border where the anvil were mated for approximately 1 minute upon firing. The stapler was removed after irrigating the shaft of the instrument with warm normal saline. Donuts were found to be intact and on both sides. The da Gil Xi robot arms were then re-docked. I sat at the console. The open jejunal limb defect was closed using 45 mm white loads after releasing any tension from the blind jejunal limb. Care was taken to avoid any long blind limb to avoid candycane syndrome. Reinforcement sutures were placed along the gastrojejunal anastomosis at the 3:00 and 11:00 position using 3-0 Vicryl. The Calvillo and jejunojejunostomy mesenteric defects were obliterated by her intra-abdominal fat. I then went to the head of the bed to perform the esophagogastrojejunoscopy and a leak test. An Olympus gastroscope was passed along the posterior oropharynx which was unremarkable for any injury to the vocal cords. The scope was passed down to the proximal portion of the pouch, whereby no active bleeding was encountered. Excellent visualization of the gastrojejunostomy anastomosis, including the Corina limb was encountered with endoscopic image obtained. The anastomosis was found to be patent. The gastrointestinal tract was desufflated. No evidence of intraoperative leak was encountered as the gastric pouch and anastomosis were submerged under normal saline solution. The robot was then undocked. I then went back to the bedside of the patient, whereby with coordinated effort of the medical assistant instructor, irrigation was aspirated from the upper abdominal cavity. Tisseel was placed circumferentially over the anastomosis of the gastrojejunostomy. The fascial defect of the EEA stapler was closed using Felix Garcia and 0 Vicryl. All instruments and pneumoperitoneum were evacuated from the abdominal cavity. The port correlating with the EEA stapler device was cleansed with normal saline solution and hydrogen peroxide. The rest of incisions were reapproximated using 4-0 Monocryl in an interrupted subcuticular fashion. Local anesthetic was infiltrated along the skin for postop analgesia. Dermabond was applied to the skin. OptiFoam dressing was placed along the EEA stapler site. At the end of the procedure, needle, sponge and instrument count had been verified correct by the surgical services assistant. She had tolerated the procedure well and was extubated and taken to the postanesthesia unit in stable condition. Intraoperative findings were described to the patient's family who were very pleased with the level of care. Total console time 112 minutes. Operative Findings: 1. Biliopancreatic limb 60 cm 2. Bypass performed using 100 cm corina limb secondary to avoid increased tension at 150 cm. 3. Payne defect and jejunojejunostomy defect obliterated by moderate intra- abdominal fat. 4. Leak test negative with gastrojejunal anastomosis patent and hemostatic. 5. Fatty liver disease 6. Thoracic length, xiphoid to umbilicus 17 cm 7. Four-port technique 8. Reinforcement sutures at 3:00 and 11:00
--- NOTE | 2017-12-27 22:02 | P.DS ---
Providers Date of admission: 12/21/17 10:17 Expected date of discharge: 12/22/17 Attending physician: Florencia Leigh Primary care physician: Winston Saez - Discharge Diagnosis(es) (1) Morbid obesity due to excess calories Status: Acute (2) Obesity, morbid, BMI 40.0-49.9 Status: Acute (3) Sleep apnea Status: Acute (4) Diabetes type 2, controlled Status: Acute (5) Hypertension Status: Acute Hospital Course: POSTOPERATIVE DIAGNOSES: 1. Morbid obesity due to excess caloric intake. 2. Body mass index 43.7, initial. 3. Diabetes type 2, insulin dependent. 4. Migraines. 5. Osteoarthritis of the knees. 6. Essential hypertension. 7. Polycystic ovarian disease. 8. Sleep disturbance, sleep apnea. 9. Vitamin D deficiency. 10. Hypertriglyceridemia. 11. Supraventricular tachycardia 12. Hepatomegaly 13. Liver disease 14. Abnormal liver enzymes. COURSE: Lucinda Baez is a 42 year old female who initially presented to the bariatric program August 2017. She has been seeking a gastric bypass to correct her morbid obesity including diabetes. She has completed diabetic education. She had an EKG which was abnormal followed by a normal stress test. She had been cleared by her sports broadcasting internship October 2017. Her highest weight is 270 pounds with body mass index of 43.7. She completed medical supervised weight loss. At her height of 5 foot 6, her ideal body weight is 154 pounds. A second-generation bariatric consent form was described in detail including the possibility of protein malnutrition, leaks, gastrojejunal stricture, venous thrombosis, need for further surgery for which she demonstrated understanding. She underwent her gastric bypass without complications. Prior to discharge, she was tolerating diet. Bariatric diet instructions were reviewed. Follow-up in the bariatric center in 48 to 72 hrs was described. Procedures: OPERATION: 1. Robotic assisted da Gil Xi laparoscopic Pedro-en-Y gastric bypass, 100 cm antecolic antegastric Pedro limb, with 25 mm EEA. 2. Intraoperative esophagogastrojejunoscopy. Patient Condition at Discharge: Stable Plan - Discharge Summary Discharge Rx Participant: Yes New Discharge Prescriptions: New Bisacodyl [Dulcolax] 5 mg PO DAILY PRN #10 [email or web address] CRANE Reason: Constipation HYDROcodone/APAP [[place] Elixir 7.5-325Mg/15Ml] 15 ml PO Q4HR PRN #480 ml PRN Reason: Pain Ondansetron Odt [Zofran Odt] 4 mg PO Q8HR PRN #9 tab PRN Reason: Nausea Simethicone 40 mg/0.6 ml Drops [Mylicon Drops] 40 mg PO PCHS PRN #30 ml PRN Reason: Gas Continue diphenhydrAMINE [Benadryl] 25 mg PO HS PRN PRN Reason: Insomnia Discontinued metFORMIN HCL ER [Glucophage Xr] 2,000 mg PO AC-SUPPER Dulaglutide [Trulicity] 1.25 mg SQ MO Magnesium 500 mg PO DAILY glipiZIDE [Glucotrol] 10 mg PO AC-BRKFST Ibuprofen [Motrin] 600 mg PO Q6HR PRN PRN Reason: Pain [id number] [Excedrin] 1 tab PO Q6HR Spironolactone [Aldactone] 50 mg PO DAILY Multivitamins, Thera [Multivitamin (formulary)] 1 tab PO DAILY Cyclobenzaprine [Flexeril] 10 mg PO HS Cholecalciferol (Vitamin D3) [Vitamin D3] 10,000 unit PO DAILY No Action HYDROcodone/APAP [[place] Elixir 7.5-325Mg/15Ml] 15 ml PO Q6H PRN #480 solution PRN Reason: Pain Discharge Medication List diphenhydrAMINE [Benadryl] 25 mg PO HS PRN 08/24/17 [History] Bisacodyl [Dulcolax] 5 mg PO DAILY PRN #10 12/22/17 [Rx] HYDROcodone/APAP [[place] Elixir 7.5-325Mg/15Ml] 15 ml PO Q4HR PRN #480 ml [Rx] Ondansetron Odt [Zofran Odt] 4 mg PO Q8HR PRN #9 tab 12/22/17 [Rx] Simethicone 40 mg/0.6 ml Drops [Mylicon Drops] 40 mg PO PCHS PRN #30 ml [Rx] HYDROcodone/APAP [[place] Elixir 7.5-325Mg/15Ml] 15 ml PO Q6H PRN #480 solution [Rx] Follow up Appointment(s)/Referral(s): Florencia Leigh MD [STAFF PHYSICIAN] - 12/24/17 10:00 am Patient Instructions/Handouts: Nutrition after Bariatric Surgery (GEN), Bowel Management After Bariatric Surgery (DC), Pedro-en-Y Gastric Bypass (DC) Activity/Diet/Wound Care/Special Instructions: No lifting over 4 pounds in 4 weeks. May shower. No bathtub soaks. Please do not take blood sugar 150. Discharge Disposition: HOME SELF-CARE
== END 2017-12-22 15:00 | disposition home or self-care (01) | DRG 621 ==
LOC: 2ORWHC 10:17 → 3SUR 17:20
PROVIDERS: ADMIT Surgery Plastic and Reconstructive Surgery; ATTEND Surgery Plastic and Reconstructive Surgery
PROC: 8E0W4CZ Robotic Assisted Procedure of Trunk Region, Percutaneous Endoscopic Approach (ICD-10-PCS; 2017-12-21)
PROC: 0DJ08ZZ Inspection of Upper Intestinal Tract, Via Natural or Artificial Opening Endoscopic (ICD-10-PCS; 2017-12-21)
PROC: 0D164ZA Bypass Stomach to Jejunum, Percutaneous Endoscopic Approach (ICD-10-PCS; principal; 2017-12-21 12:10)
DX: E66.01 Morbid (severe) obesity due to excess calories (principal); K76.0 Fatty (change of) liver, not elsewhere classified; R16.0 Hepatomegaly, not elsewhere classified; E11.9 Type 2 diabetes mellitus without complications; Z68.39 Body mass index [BMI] 39.0-39.9, adult; G43.909 Migraine, unspecified, not intractable, without status migrainosus; M17.0 Bilateral primary osteoarthritis of knee; I10 Essential (primary) hypertension; E28.2 Polycystic ovarian syndrome; G47.30 Sleep apnea, unspecified; E55.9 Vitamin D deficiency, unspecified; E78.1 Pure hyperglyceridemia; M54.9 Dorsalgia, unspecified; Z71.3 Dietary counseling and surveillance; Z79.4 Long term (current) use of insulin; Z79.82 Long term (current) use of aspirin; Z79.899 Other long term (current) drug therapy; Z88.2 Allergy status to sulfonamides; Z83.3 Family history of diabetes mellitus
CPT/HCPCS: 80051; 82310; 82565; 83735; 84100; 84132; 84520; 85025; 86850; 86900; 86901

== ENCOUNTER → 2017-12-24 | Outpatient (CLI) | payer BC ==
[2017-12-24 15:57] VITALS: BMI 39.6
[2017-12-24 16:47] VITALS: BP 123/83; PULSE 89; TEMP 97.6
== END | disposition home or self-care (01) ==
LOC: BARWHC3 15:19
PROVIDERS: ATTEND Surgery Plastic and Reconstructive Surgery
DX: E66.01 Morbid (severe) obesity due to excess calories (principal); E10.65 Type 1 diabetes mellitus with hyperglycemia; Z71.3 Dietary counseling and surveillance; Z68.39 Body mass index [BMI] 39.0-39.9, adult
CPT/HCPCS: 97803; 99211

== ENCOUNTER → 2018-01-06 | Outpatient (CLI) | payer BC ==
[2018-01-06 16:10] VITALS: BMI 37.5
[2018-01-06 16:44] VITALS: BP 108/70; PULSE 95; RESP 16; TEMP 97.8
--- NOTE | 2018-01-06 16:49 | P.PN ---
Progress Note - Text Progress Note Date: 01/06/18 To whom it may concern: Lucinda Baez is under my surgical care. She is still recovering from surgery. Her date for return to work is adjusted to February 01 without restrictions. Regards, Florencia Leigh MD, FACS, [facility]
== END | disposition home or self-care (01) ==
LOC: BARWHC3 15:31
PROVIDERS: ATTEND Surgery Plastic and Reconstructive Surgery
DX: E66.01 Morbid (severe) obesity due to excess calories (principal); E21.1 Secondary hyperparathyroidism, not elsewhere classified; D50.9 Iron deficiency anemia, unspecified; E89.1 Postprocedural hypoinsulinemia; E44.0 Moderate protein-calorie malnutrition; E55.9 Vitamin D deficiency, unspecified; K74.1 Hepatic sclerosis; N19 Unspecified kidney failure; K50.90 Crohn's disease, unspecified, without complications
CPT/HCPCS: 97803; 99211

== ENCOUNTER → 2018-01-20 | Outpatient (CLI) | payer BC ==
[2018-01-20 11:43] LABS: ALT 75 U/L (9-52); AST 39 U/L (14-36); Albumin 3.8 g/dL (3.5-5.0); Alkaline Phosphatase 61 U/L (38-126); Anion Gap 12 mmol/L; Blood Urea Nitrogen 16 mg/dL (7-17); Calcium 9.5 mg/dL (8.4-10.2); Carbon Dioxide 23 mmol/L (22-30); Chloride 105 mmol/L (98-107); Cholesterol 125 mg/dL (<200); Glucose 138 mg/dL (74-99); HDL Cholesterol 29 mg/dL (40-60); LDL Cholesterol,Calculated 69 mg/dL (0-99); Phosphorus 3.2 mg/dL (2.5-4.5); Sodium 140 mmol/L (137-145); Total Bilirubin 0.4 mg/dL (0.2-1.3); Total Protein 6.2 g/dL (6.3-8.2); Triglycerides 133 mg/dL (<150)
[2018-01-20 11:55] LABS: HCT 39.7 % (34.0-46.0); HGB 13.7 gm/dL (11.4-16.0); MCH 30.2 pg (25.0-35.0); MCHC 34.5 g/dL (31.0-37.0); MCV 87.6 fL (80.0-100.0); Mean Platelet Volume 7.5; Platelet Count 230 k/uL (150-450); RBC 4.53 m/uL (3.80-5.40); RDW 14.1 % (11.5-15.5); WBC 7.2 k/uL (3.8-10.6)
[2018-01-20 12:12] LABS: INR 1.1 (<1.2); Partial Thromboplastin Time 23.5 sec (22.0-30.0); Prothrombin Time 10.8 sec (9.0-12.0)
[2018-01-20 17:39] LABS: Iron Saturation 21.66 (12.00-45.00)
[2018-01-20 17:44] LABS: Parathyroid Hormone Intact 33.3 pg/mL (14.0-72.0)
[2018-01-20 17:48] LABS: Vitamin D 25 Hydroxy 39.8 ng/mL (30.0-100.0)
[2018-01-20 17:49] LABS: Folate, Serum 12.6 ng/mL
[2018-01-20 20:28] LABS: Hemoglobin A1C 6.5 % (4.0-6.0)
[2018-01-21 12:05] LABS: Zinc, Serum 87 ug/dL (60-130)
[2018-01-21 15:21] LABS: Vitamin A 32 ug/dL (38-106)
[2018-01-22 06:55] LABS: Vitamin B1 36 ug/L (38-122)
[2018-01-23 17:08] LABS: Selenium 102 mcg/L (63-160)
== END | disposition home or self-care (01) ==
LOC: LABWHC1 10:28
PROVIDERS: ATTEND Surgery Plastic and Reconstructive Surgery
DX: E66.01 Morbid (severe) obesity due to excess calories (principal); E21.1 Secondary hyperparathyroidism, not elsewhere classified; E89.1 Postprocedural hypoinsulinemia; D50.9 Iron deficiency anemia, unspecified; E44.0 Moderate protein-calorie malnutrition; E55.9 Vitamin D deficiency, unspecified; K74.1 Hepatic sclerosis; N19 Unspecified kidney failure; K50.90 Crohn's disease, unspecified, without complications
CPT/HCPCS: 36415; 80053; 80061; 82306; 82525; 82607; 82728; 82746; 83036; 83540; 83550; 83735; 83970; 84100; 84134; 84255; 84425; 84443; 84590; 84630; 85027; 85610; 85730

== ENCOUNTER → 2018-02-03 | Outpatient (CLI) | payer BC ==
[2018-02-03 17:17] VITALS: BP 110/74; PULSE 88; RESP 16; TEMP 98.4; BMI 36.6
--- NOTE | 2018-02-03 18:05 | P.PN ---
Subjective Progress Note Date: 02/03/18 DATE: 02/03/2018 CHIEF COMPLAINT: Status post gastric bypass HISTORY OF PRESENT ILLNESS: Lucinda Baez is a 42 year old female who is status post gastric bypass 12/21/2017. She is less than 2 months out. Her last visit was 01/06/2018 Her highest weight is 270 pounds with body mass index of 43.7. At her height of 5 foot 6, her ideal body weight is 154 pounds. She has lost 5 pounds since her last visit 1 month ago. Her body mass index is 36.7. She comes in weighing 227 pounds today where her last weight was 232 pounds. Percent excess weight loss 37%. She is 78 pounds overweight. Total lifetime weight loss of 43 pounds. PHYSICAL EXAM: Vital Signs Temp 98.4 F 02/03/18 17:14 Pulse 88 02/03/18 17:14 Resp 16 02/03/18 17:14 BP 110/74 02/03/18 17:14 Pulse Ox Intake & Output 02/02/18 02/03/18 02/03/18 18:59 06:59 18:59 Weight 103.022 kg VITAL SIGNS: 5 feet 6 inches, 227 pounds, body mass index 36.7 GENERAL: Well-developed female in no acute distress. HEENT: No scleral icterus. Extraocular movements grossly intact. NECK: Supple without lymphadenopathy. CHEST: Nonlabored respirations with equal bilateral excursions. CARDIOVASCULAR: Regular rate. Regular rhythm. 2+ pulses. ABDOMEN: Soft, nontender, nondistended. Incisions granulated. No infection. MUSCULOSKELETAL: No clubbing or cyanosis or edema. NEURO: No focal or lateralizing signs. Cranial nerves 2-12 grossly within normal limits. PSYCH: Appropriate affect. Alert and oriented to person, place and time. SKIN: Well perfused. Good skin turgor. LABS: Reviewed. ASSESSMENT: 1. Morbid obesity due to excess caloric intake. 2. Body mass index 43.7 to 36.7 3. Diabetes type 2, insulin dependent, resolved. 4. Essential hypertension, improved 5. Status post gastric bypass 6. Sleep apnea resolved PLAN: 1. Her protein intake is between 80 to 100 grams. 2. We emphasized adding vegetables to diet for fiber. 3. Blood sugars are far improved. 4. Discussed eating vitamin A rich foods. 5. Okay to start exercise. 6. Follow-up in March 2018 Objective - Vital Signs Vital signs: Vital Signs Temp 98.4 F 02/03/18 17:14 Pulse 88 02/03/18 17:14 Resp 16 02/03/18 17:14 BP 110/74 02/03/18 17:14 Pulse Ox Intake & Output 02/02/18 02/03/18 02/03/18 18:59 06:59 18:59 Weight 103.022 kg
== END | disposition home or self-care (01) ==
LOC: BARWHC3 16:10
PROVIDERS: ATTEND Surgery Plastic and Reconstructive Surgery
DX: Z48.815 Encounter for surgical aftercare following surgery on the digestive system (principal); E66.01 Morbid (severe) obesity due to excess calories; I10 Essential (primary) hypertension; E10.65 Type 1 diabetes mellitus with hyperglycemia; Z98.84 Bariatric surgery status; Z68.36 Body mass index [BMI] 36.0-36.9, adult; Z71.3 Dietary counseling and surveillance
CPT/HCPCS: 97803; 99211

== ENCOUNTER → 2018-03-24 | Outpatient (CLI) | payer BC ==
[2018-03-24 16:06] VITALS: BP 127/81; PULSE 69; RESP 16; TEMP 98.2; BMI 34.0
--- NOTE | 2018-03-24 16:39 | P.PN ---
Subjective Progress Note Date: 03/24/18 HPI: She is 3 months out. No issues. She is losing weight. Her blood sugars are 120 fasting. She has stopped all her diabetic medications. No heartburn. No indigestion. She reports recent constipation. PLAN: 1. Labs today 2. Doing well. 3. Follow up in 3 months Objective - Vital Signs Vital signs: Vital Signs Temp 98.2 F 03/24/18 16:01 Pulse 69 03/24/18 16:01 Resp 16 03/24/18 16:01 BP 127/81 03/24/18 16:01 Pulse Ox Intake & Output 03/23/18 03/24/18 03/24/18 18:59 06:59 18:59 Weight 95.481 kg
== END | disposition home or self-care (01) ==
LOC: BARWHC3 15:38
PROVIDERS: ATTEND Surgery Plastic and Reconstructive Surgery
DX: K59.00 Constipation, unspecified (principal); E66.01 Morbid (severe) obesity due to excess calories; E10.65 Type 1 diabetes mellitus with hyperglycemia; Z68.34 Body mass index [BMI] 34.0-34.9, adult
CPT/HCPCS: 97803; 99211

== ENCOUNTER → 2018-03-27 | Outpatient (CLI) | payer BC ==
[2018-03-27 12:32] LABS: HCT 41.9 % (34.0-46.0); HGB 14.5 gm/dL (11.4-16.0); MCH 31.6 pg (25.0-35.0); MCHC 34.5 g/dL (31.0-37.0); MCV 91.6 fL (80.0-100.0); Platelet Count 233 k/uL (150-450); RBC 4.58 m/uL (3.80-5.40); RDW 13.6 % (11.5-15.5); WBC 7.4 k/uL (3.8-10.6)
[2018-03-27 12:39] LABS: INR 1.1 (<1.2); Partial Thromboplastin Time 23.2 sec (22.0-30.0); Prothrombin Time 10.7 sec (9.0-12.0)
[2018-03-27 12:50] LABS: ALT 52 U/L (9-52); AST 30 U/L (14-36); Albumin 4.3 g/dL (3.5-5.0); Alkaline Phosphatase 77 U/L (38-126); Anion Gap 10 mmol/L; Blood Urea Nitrogen 18 mg/dL (7-17); Calcium 9.7 mg/dL (8.4-10.2); Carbon Dioxide 26 mmol/L (22-30); Chloride 103 mmol/L (98-107); Cholesterol 108 mg/dL (<200); Glucose 121 mg/dL (74-99); HDL Cholesterol 31 mg/dL (40-60); LDL Cholesterol,Calculated 60 mg/dL (0-99); Phosphorus 3.7 mg/dL (2.5-4.5); Potassium 4.3 mmol/L (3.5-5.1); Sodium 139 mmol/L (137-145); Total Bilirubin 0.4 mg/dL (0.2-1.3); Total Protein 6.7 g/dL (6.3-8.2); Triglycerides 86 mg/dL (<150)
[2018-03-27 16:18] LABS: Iron Saturation 17.44 (12.00-45.00)
[2018-03-27 16:27] LABS: Parathyroid Hormone Intact 30.1 pg/mL (14.0-72.0)
[2018-03-27 16:29] LABS: Vitamin D 25 Hydroxy 35.9 ng/mL (30.0-100.0)
[2018-03-27 16:39] LABS: Folate, Serum 18.4 ng/mL
[2018-03-27 18:23] LABS: Hemoglobin A1C 5.6 % (4.0-6.0)
[2018-03-29 16:20] LABS: Zinc, Serum 69 ug/dL (60-130)
[2018-03-30 05:45] LABS: Vitamin A 34 ug/dL (38-106)
[2018-03-30 06:29] LABS: Vitamin B1 95 ug/L (38-122)
== END | disposition home or self-care (01) ==
LOC: LABWHC1 11:31
PROVIDERS: ATTEND Surgery Plastic and Reconstructive Surgery
DX: E66.01 Morbid (severe) obesity due to excess calories (principal); E89.1 Postprocedural hypoinsulinemia; E21.1 Secondary hyperparathyroidism, not elsewhere classified; D50.9 Iron deficiency anemia, unspecified; K90.9 Intestinal malabsorption, unspecified; E55.9 Vitamin D deficiency, unspecified; K74.1 Hepatic sclerosis; N19 Unspecified kidney failure; K50.90 Crohn's disease, unspecified, without complications
CPT/HCPCS: 36415; 80053; 80061; 82306; 82525; 82607; 82728; 82746; 83036; 83540; 83550; 83735; 83970; 84100; 84134; 84255; 84425; 84443; 84590; 84630; 85027; 85610; 85730

== ENCOUNTER → 2018-06-23 | Outpatient (CLI) | payer BC ==
[2018-06-23 17:14] VITALS: BP 119/80; PULSE 70; RESP 16; TEMP 98.1; BMI 30.3
--- NOTE | 2018-06-23 17:27 | P.PN ---
Subjective Progress Note Date: 06/23/18 DATE: 06/23/18 CHIEF COMPLAINT: Status post gastric bypass HISTORY OF PRESENT ILLNESS: Lucinda Baez is a 42 year old female who is status post gastric bypass 12/21/2017. She is 6 months out. Her highest weight is 270 pounds with body mass index of 43.7. At her height of 5 foot 6, her ideal body weight is 154 pounds. She has lost 22 pounds since her last visit 3 months ago. Her body mass index is down to 30.3. She comes in weighing 188 pounds from 210 pounds, 3 months ago. Percent excess weight loss 71 %. Total lifetime weight loss of 82 pounds. She is doing very well. Her Hgb A1C is 5.6%. She is off all diabetic medications. She has constipation. PHYSICAL EXAM: VITAL SIGNS: 5 feet 6 inches, 188 pounds, body mass index 30.3 Vital Signs Temp 98.1 F 06/23/18 17:11 Pulse 70 06/23/18 17:11 Resp 16 06/23/18 17:11 BP 119/80 06/23/18 17:11 Pulse Ox GENERAL: Well-developed female in no acute distress. HEENT: No scleral icterus. Extraocular movements grossly intact. NECK: Supple without lymphadenopathy. CHEST: Nonlabored respirations with equal bilateral excursions. CARDIOVASCULAR: Regular rate. Regular rhythm. 2+ pulses. ABDOMEN: Soft, nontender, nondistended. No hernia MUSCULOSKELETAL: No clubbing or cyanosis or edema. NEURO: No focal or lateralizing signs. Cranial nerves 2-12 grossly within normal limits. PSYCH: Appropriate affect. Alert and oriented to person, place and time. SKIN: Well perfused. Good skin turgor. ASSESSMENT: 1. Morbid obesity due to excess caloric intake. 2. Body mass index 43.7 to 30.30 3. Diabetes type 2, insulin dependent, resolved. 4. Essential hypertension, improved 5. Status post gastric bypass PLAN: 1. Recommend bariatric labs 2. Recommend high fiber diet 3. She is 6 months out.
== END | disposition home or self-care (01) ==
LOC: BARWHC3 15:45
PROVIDERS: ATTEND Surgery Plastic and Reconstructive Surgery
DX: E66.01 Morbid (severe) obesity due to excess calories (principal); E10.65 Type 1 diabetes mellitus with hyperglycemia; Z68.30 Body mass index [BMI] 30.0-30.9, adult; Z98.84 Bariatric surgery status
CPT/HCPCS: 97803; 99211

== ENCOUNTER → 2018-07-03 | Outpatient (CLI) | payer BC ==
[2018-07-03 12:03] LABS: HCT 41.1 % (34.0-46.0); HGB 13.9 gm/dL (11.4-16.0); MCH 30.9 pg (25.0-35.0); MCHC 33.9 g/dL (31.0-37.0); MCV 91.2 fL (80.0-100.0); Mean Platelet Volume 7.2; Platelet Count 249 k/uL (150-450); RBC 4.51 m/uL (3.80-5.40); RDW 13.2 % (11.5-15.5); WBC 6.2 k/uL (3.8-10.6)
[2018-07-03 12:06] LABS: ALT 71 U/L (9-52); AST 42 U/L (14-36); Albumin 3.8 g/dL (3.5-5.0); Alkaline Phosphatase 69 U/L (38-126); Anion Gap 7 mmol/L; Blood Urea Nitrogen 17 mg/dL (7-17); Calcium 9.1 mg/dL (8.4-10.2); Carbon Dioxide 27 mmol/L (22-30); Chloride 104 mmol/L (98-107); Cholesterol 113 mg/dL (<200); Glucose 97 mg/dL (74-99); HDL Cholesterol 52 mg/dL (40-60); LDL Cholesterol,Calculated 41 mg/dL (0-99); Partial Thromboplastin Time 22.7 sec (22.0-30.0); Phosphorus 3.6 mg/dL (2.5-4.5); Potassium 3.8 mmol/L (3.5-5.1); Prothrombin Time 10.2 sec (9.0-12.0); Sodium 138 mmol/L (137-145); Total Bilirubin 0.4 mg/dL (0.2-1.3); Total Protein 6.3 g/dL (6.3-8.2); Triglycerides 102 mg/dL (<150)
[2018-07-03 17:42] LABS: Iron Saturation 20.38 (12.00-45.00)
[2018-07-03 17:49] LABS: Vitamin D 25 Hydroxy 50.2 ng/mL (30.0-100.0)
[2018-07-03 18:05] LABS: Parathyroid Hormone Intact 41.9 pg/mL (14.0-72.0)
[2018-07-03 18:16] LABS: Hemoglobin A1C 5.6 % (4.0-6.0)
[2018-07-03 19:07] LABS: Folate, Serum 13.7 ng/mL
[2018-07-06 06:10] LABS: Vitamin B1 74 ug/L (38-122)
[2018-07-06 18:30] LABS: Selenium 123 mcg/L (63-160)
[2018-07-07 05:38] LABS: Vitamin A 55 ug/dL (38-106)
[2018-07-07 12:33] LABS: Zinc, Serum 91 ug/dL (60-130)
== END | disposition home or self-care (01) ==
LOC: LABWHC1 11:37
PROVIDERS: ATTEND Surgery Plastic and Reconstructive Surgery
DX: E55.9 Vitamin D deficiency, unspecified (principal); E66.01 Morbid (severe) obesity due to excess calories; E21.1 Secondary hyperparathyroidism, not elsewhere classified; E89.1 Postprocedural hypoinsulinemia; D50.9 Iron deficiency anemia, unspecified; E44.0 Moderate protein-calorie malnutrition; K74.1 Hepatic sclerosis; N19 Unspecified kidney failure; K50.90 Crohn's disease, unspecified, without complications
CPT/HCPCS: 36415; 80053; 80061; 82306; 82525; 82607; 82728; 82746; 83036; 83540; 83550; 83735; 83970; 84100; 84134; 84255; 84425; 84443; 84590; 84630; 85027; 85610; 85730

== ENCOUNTER → 2018-09-15 | Outpatient (CLI) | payer BC ==
--- NOTE | 2018-09-15 17:21 | P.PN ---
Subjective Progress Note Date: 09/15/18 HPI: She is doing great! BSG is now normal. Highest 275 lbs. She gets sciatica pain since weight loss. ABDOMEN: Hernia none. PLAN: 1. Get labs 2. Re-check Hgb A1c 3. Nystatin of the skin 4. No GERD
[2018-09-15 17:23] VITALS: BP 120/79; PULSE 80; RESP 16; TEMP 97.5; BMI 28.9
== END ==
LOC: BARWHC3 15:32
PROVIDERS: ATTEND Surgery Plastic and Reconstructive Surgery
DX: M54.30 Sciatica, unspecified side (principal); E66.01 Morbid (severe) obesity due to excess calories; Z68.29 Body mass index [BMI] 29.0-29.9, adult; Z71.3 Dietary counseling and surveillance
CPT/HCPCS: 97803; 99211

== ENCOUNTER → 2018-12-22 | Outpatient (CLI) | payer BC ==
[2018-12-22 16:20] LABS: HCT 40.7 % (34.0-46.0); HGB 13.5 gm/dL (11.4-16.0); MCH 31.2 pg (25.0-35.0); MCHC 33.3 g/dL (31.0-37.0); MCV 93.8 fL (80.0-100.0); Mean Platelet Volume 6.4; Platelet Count 234 k/uL (150-450); RBC 4.34 m/uL (3.80-5.40); RDW 13.5 % (11.5-15.5); WBC 5.7 k/uL (3.8-10.6)
[2018-12-22 16:26] LABS: Partial Thromboplastin Time 24.5 sec (22.0-30.0); Prothrombin Time 10.7 sec (9.0-12.0)
[2018-12-23 01:08] LABS: Albumin 4.4 g/dL (3.80-4.90); Albumin/Globulin Ratio 2.44 (1.60-3.17); Anion Gap 6.9 mmol/L (4.00-12.00); Calcium 9.5 mg/dL (8.7-10.3); Carbon Dioxide 25.1 mmol/L (21.6-31.8); Globulin 1.8 g/dL (1.6-3.3); LDL Cholesterol,Calculated 41.4 mg/dL (0.0-131.0); Phosphorus 3.8 mg/dL (2.4-5.1); Potassium 4.1 mmol/L (3.5-5.5); Total Bilirubin 0.7 mg/dL (0.3-1.2); Total Protein 6.2 g/dL (6.2-8.2); VLDL Calculation 15.6 mg/dL (5.00-40.00)
[2018-12-23 01:36] LABS: Iron Saturation 36.73 (12.00-45.00)
[2018-12-23 01:45] LABS: Folate, Serum 7.7 ng/mL; Vitamin D 25 Hydroxy 72.5 ng/mL (30.0-100.0)
[2018-12-23 01:53] LABS: Parathyroid Hormone Intact 69.1 pg/mL (14.0-72.0)
[2018-12-23 03:14] LABS: Hemoglobin A1C 5.2 % (4.0-6.0)
[2018-12-23 14:57] LABS: Zinc, Serum 56 ug/dL (60-130)
[2018-12-24 06:15] LABS: Vitamin A 60 ug/dL (38-106)
[2018-12-24 10:09] LABS: Vit B1(Thiamine) 85 ug/L (38-122)
[2018-12-25 13:21] LABS: Selenium 113 mcg/L (63-160)
== END | disposition home or self-care (01) ==
LOC: LABWHC1 15:37
PROVIDERS: ATTEND Surgery Plastic and Reconstructive Surgery
DX: E21.1 Secondary hyperparathyroidism, not elsewhere classified (principal); E66.01 Morbid (severe) obesity due to excess calories; E89.1 Postprocedural hypoinsulinemia; D50.9 Iron deficiency anemia, unspecified; E44.0 Moderate protein-calorie malnutrition; K74.1 Hepatic sclerosis; N19 Unspecified kidney failure; K50.90 Crohn's disease, unspecified, without complications; E55.9 Vitamin D deficiency, unspecified
CPT/HCPCS: 36415; 80053; 80061; 82306; 82525; 82607; 82728; 82746; 83036; 83540; 83550; 83735; 83970; 84100; 84134; 84255; 84425; 84443; 84590; 84630; 85027; 85610; 85730

== ENCOUNTER → 2018-12-22 | Outpatient (CLI) | payer BC ==
--- NOTE | 2018-12-22 15:19 | P.PN ---
Subjective Progress Note Date: 12/22/18 HPI: She has more energy. No GERD. No dysphagia. Highest weight off 272 pounds. ABDOMEN: Panniculitis present. Weight of skin 10 pounds. Over 6 cm of skin ASSESSMENT: 1. Panniculitis 2. Morbid obesity PLAN: 1. Nystatin powder. 2. Labs yearly.
[2018-12-22 16:20] VITALS: BP 114/70; PULSE 71; RESP 16; TEMP 97.6; BMI 26.9
== END | disposition home or self-care (01) ==
LOC: BARWHC3 13:38
PROVIDERS: ATTEND Surgery Plastic and Reconstructive Surgery
DX: E66.01 Morbid (severe) obesity due to excess calories (principal); M79.3 Panniculitis, unspecified; Z68.26 Body mass index [BMI] 26.0-26.9, adult
CPT/HCPCS: 97803; 99211

== ENCOUNTER → 2019-04-29 | Outpatient (CLI) | payer BC ==
--- NOTE | 2019-04-29 09:55 | US ---
EXAMINATION TYPE: US gallbladder DATE OF EXAM: 04/29/2019 COMPARISON: NONE CLINICAL HISTORY: R10.11 RUQ ABD PAIN,R13.10 DYSPHAGIA,R10.13 EPIGASTRIC PAIN. RUQ pain EXAM MEASUREMENTS: Liver Length: 13.4 cm Gallbladder Wall: 0.3 cm CBD: 0.4 cm Right Kidney: 10.1 x 6.0 x 4.5 cm Pancreas: visualized portions appear wnl Liver: appears wnl Gallbladder: no evidence of stones Evidence for sonographic Calvert's sign: no CBD: wnl Right Kidney: no evidence of hydronephrosis IMPRESSION: No sonographic evidence of cholelithiasis nor acute cholecystitis. Unremarkable right upp er quadrant ultrasound.
== END | disposition home or self-care (01) ==
LOC: RADUSWWP 07:17
PROVIDERS: ATTEND Surgery Plastic and Reconstructive Surgery
DX: R10.11 Right upper quadrant pain (principal); R13.10 Dysphagia, unspecified; R10.13 Epigastric pain; Z88.2 Allergy status to sulfonamides
CPT/HCPCS: 76705

== ENCOUNTER → 2019-07-26 | Outpatient (CLI) | payer BC ==
[2019-07-26 11:10] LABS: Basophils % (A) 0 %; Eosinophils # (A) 0.1 k/uL (0-0.7); Eosinophils % (A) 2 %; HCT 39.2 % (34.0-46.0); HGB 13.4 gm/dL (11.4-16.0); Lymphocytes # (A) 1.5 k/uL (1.0-4.8); Lymphocytes % (A) 34 %; MCH 32.3 pg (25.0-35.0); MCHC 34.1 g/dL (31.0-37.0); MCV 94.5 fL (80.0-100.0); Mean Platelet Volume 6.1; Monocytes # (A) 0.1 k/uL (0-1.0); Monocytes % (A) 3 %; Neutrophils # (A) 2.7 k/uL (1.3-7.7); Neutrophils % (A) 60 %; Platelet Count 260 k/uL (150-450); RBC 4.15 m/uL (3.80-5.40); RDW 13.1 % (11.5-15.5); WBC 4.6 k/uL (3.8-10.6)
[2019-07-26 19:09] LABS: African American GFR (CKD) 123.9 (60.0-200.0); Albumin/Globulin Ratio 2.5 (1.60-3.17); Anion Gap 9.8 mmol/L (4.00-12.00); BUN/Creat Ratio 21.43 Ratio (12.00-20.00); Calcium 8.6 mg/dL (8.7-10.3); Carbon Dioxide 27.2 mmol/L (21.6-31.8); Globulin 1.6 g/dL (1.6-3.3); Potassium 3.6 mmol/L (3.5-5.5); Total Bilirubin 0.4 mg/dL (0.2-1.2); Total Protein 5.6 g/dL (6.2-8.2)
== END | disposition home or self-care (01) ==
LOC: LABWHC1 10:36
PROVIDERS: ATTEND Nurse Practitioner Family
DX: L29.9 Pruritus, unspecified (principal)
CPT/HCPCS: 36415; 80053; 85025

== ENCOUNTER → 2019-09-30 | Outpatient (CLI) | payer BC ==
--- NOTE | 2019-09-30 08:50 | MM ---
Reason for exam: additional evaluation requested from prior study. Last mammogram was performed 2 years ago. History: Patient is nulliparous. Taking hormonal contraceptives for 7 years 5 months beginning at age 41. Physical Findings: Nurse did not find any significant physical abnormalities on exam. MG 3D Diag Mammo W/Cad MELY Bilateral CC and MLO view(s) were taken. Prior study comparison: September 23, 2017, right breast MG work up mamm w CAD RT. September 17, 2017, bilateral MG screening mammo w CAD. The breast tissue is heterogeneously dense. This may lower the sensitivity of mammography. There is chronic nodularity in the right breast 1.7cm medial to nodularity. There is no new dominant lesion. Focal asymmetry right middle depth does not persist on additional views. These results were verbally communicated with the patient and result sheet given to the patient on 09/30/19. ASSESSMENT: Benign, BI-RAD 2 RECOMMENDATION: Routine screening mammogram of both breasts in 1 year.
== END | disposition home or self-care (01) ==
LOC: RADMAMWWP 07:35
PROVIDERS: ATTEND Clinical Nurse Specialist Women's Health
DX: R92.8 Other abnormal and inconclusive findings on diagnostic imaging of breast (principal)
CPT/HCPCS: 77062; 77066

== ENCOUNTER 2022-08-15 21:21 | Emergency (ER) | payer BC ==
[2022-08-15 22:06] VITALS: BP 155/96; PULSE 92; RESP 16; TEMP 97.7
--- NOTE | 2022-08-15 22:49 | US ---
EXAMINATION TYPE: US venous doppler duplex LE RT DATE OF EXAM: 08/15/2022 10:08 PM COMPARISON: NONE CLINICAL HISTORY: right leg swelling. right knee and calf swelling x 3 days. No hx of DVT, not on blo od thinners SIDE PERFORMED: Right TECHNIQUE: The lower extremity deep venous system is examined utilizing real time linear array sonog vi with graded compression, doppler sonography and color-flow sonography. VESSELS IMAGED: Common Femoral Vein Deep Femoral Vein Greater Saphenous Vein * Femoral Vein Popliteal Vein Small Saphenous Vein * Proximal Calf Veins (* superficial vessels) Right Leg: Negative for DVT IMPRESSION: Normal exam. No evidence of deep vein thrombosis in the right leg.
--- NOTE | 2022-08-15 23:27 | XR ---
EXAMINATION TYPE: XR knee complete RT DATE OF EXAM: 08/15/2022 COMPARISON: NONE HISTORY: Pain. Fall TECHNIQUE: 3 views FINDINGS: There is no fracture nor dislocation. Joint spaces are normal. No sign of knee joint effusi on. IMPRESSION: Negative right knee exam. No fracture.
--- NOTE | 2022-08-15 23:36 | ED ---
General Adult HPI - General Chief complaint: Extremity Problem,Nontraumatic Stated complaint: swelling/pain knee Time Seen by Provider: 08/15/22 23:00 Source: patient Mode of arrival: ambulatory Limitations: no limitations - History of Present Illness Initial comments: Patient is a 47-year-old female presenting with chief complaint of swelling to the right lower extremity. Patient states that it started with some right knee swelling, no pain or injury or trauma. She states the following day she noted swelling to the lower leg. No pain to the lower extremity. No discoloration, warmth, tenderness, fever, chills, nausea, vomiting, numbness weakness, difficulty with range of motion. No history of blood clots. No chest pain, difficulty breathing, palpitations. No abdominal pain or pelvic pain. - Related Data Home Medications Medication Instructions Recorded Confirmed Calcium Citrate 500 mg PO BID 02/04/18 12/23/18 Multivitamin [Multivitamins Adult 1 each PO DAILY 02/04/18 12/23/18 Gummies] Thiamine [Vitamin B-1] 50 mg PO DAILY 02/04/18 12/23/18 Previous Rx's Medication Instructions Recorded Nystatin 100,000 Unit/gm Powd 1 applic TOPICAL BID #60 powder 12/22/18 [Mycostatin Powder] Allergies Allergy/AdvReac Type Severity Reaction Status Date / Time Sulfa (Sulfonamide Allergy Swelling Verified 08/15/22 22:03 Antibiotics) Review of Systems ROS Statement: Those systems with pertinent positive or pertinent negative responses have been documented in the HPI. ROS Other: All systems not noted in ROS Statement are negative. Past Medical History Past Medical History: Diabetes Mellitus Additional Past Medical History / Comment(s): poly-cystic ovary syndrome, migraines. History of Any Multi-Drug Resistant Organisms: None Reported Past Surgical History: No Surgical Hx Reported, Bariatric Surgery Additional Past Surgical History / Comment(s): egd, gastric bypass 12-21-17 (Dr. Pereira) Past Anesthesia/Blood Transfusion Reactions: Family History of Problems w/ Anesthesia Additional Past Anesthesia/Blood Transfusion Reaction / Comment(s): PT HAS NEVER RECEIVED ANESTHESIA. SISTER=PONV Past Psychological History: Anxiety Smoking Status: Never smoker Past Alcohol Use History: Rare Past Drug Use History: None Reported - Past Family History Mother Family Medical History: No Reported History General Exam Limitations: no limitations General appearance: alert, in no apparent distress Head exam: Present: atraumatic, normocephalic, normal inspection Eye exam: Present: normal appearance Neck exam: Present: normal inspection Right Knee exam: Present: full ROM, swelling. Absent: tenderness Lower Leg exam: Present: full ROM, swelling. Absent: tenderness Neurovascular tendon exam: Present: no vascular compromise. Absent: pulse deficit (Distal pulses 2+), motor deficit, sensory deficit Neurological exam: Present: alert, oriented X3, CN II-XII intact Psychiatric exam: Present: normal affect, normal mood Skin exam: Present: warm, dry, intact, normal color. Absent: rash Course Vital Signs 08/15/22 22:03 Temperature 97.7 F Pulse Rate 92 Respiratory 16 Rate Blood Pressure 155/96 O2 Sat by Pulse 97 Oximetry Medical Decision Making - Medical Decision Making Patient is a 47-year-old female presenting with chief complaint of swelling to the right lower extremity. She states that the knee and lower leg has been swollen, no pain or injury. On examination there is some minor swelling, no pitting edema. No tenderness on palpation. Distal pulses are 2+ with normal sensation. No erythema or indications of infectious process. Ultrasound is negative for DVT. X-ray of the knee shows no acute process. Patient is educated on these findings. Educated on rest, ice, compression, elevation method. Follow-up with PCP. Report back to ER with any new or worsening symptoms. Discussed return parameters and answered all questions. Patient conveyed verbal understanding and agreed to the plan. I discussed this case in detail with my attending Dr. Tavarez Disposition Clinical Impression: Swelling of lower extremity Disposition: HOME SELF-CARE Condition: Good Instructions (If sedation given, give patient instructions): Leg Edema (ED), Swollen Knee Joint (ED), Knee Pain (ED) Additional Instructions: Follow-up with PCP. Report back to ER with any new or worsening symptoms. Rest, ice, compress, elevate the leg as needed. Is patient prescribed a controlled substance at d/c from ED?: No Referrals: Winston Saze DO [Primary Care Provider] - 1-2 days Time of Disposition: 23:36
== END 2022-08-15 23:58 | disposition home or self-care (01) ==
LOC: EC 21:21
DX: R22.41 Localized swelling, mass and lump, right lower limb (principal); E11.9 Type 2 diabetes mellitus without complications; F41.9 Anxiety disorder, unspecified; Z88.2 Allergy status to sulfonamides; Z79.899 Other long term (current) drug therapy
CPT/HCPCS: 99284

== ENCOUNTER → 2023-01-29 | Outpatient (CLI) | payer BC ==
--- NOTE | 2023-01-29 07:52 | MM ---
Reason for Exam: Clinical finding. Last mammogram was performed 3 year(s) and 4 month(s) ago. Patient History: Menarche at age 15. Patient has no children. Currently using Hormonal Contraceptives, for 5 months. Risk Values: Sophy 5 year model risk: 0.9%. NCI Lifetime model risk: 10.6%. Tissue Density: The breast tissue is heterogeneously dense. This may lower the sensitivity of mammography. Findings: Analyzed By CAD. Palpable marker placed along the lateral aspect of the right breast. Asymmetric density outer aspect of the right cc view middle to posterior depth remains unchanged. No significant change from prior exams. Overall Assessment: Incomplete: need additional imaging evaluation, BI-RAD 0 Management: Diagnostic Breast Ultrasound of the right breast. Targeted to the patient's palpable site. Electronically signed and approved by: Caesar Flores M.D. Radiologist
--- NOTE | 2023-01-29 08:43 | USB ---
Reason for Exam: Clinical finding. Patient History: Menarche at age 15. Patient has no children. Currently using Hormonal Contraceptives, for 5 months. Risk Values: Sophy 5 year model risk: 0.9%. NCI Lifetime model risk: 10.6%. Technique: Method: Targeted. Prior Study Comparison: 09/17/2017 Bilateral Screening Mammogram, [facility]. 09/23/2017 Right Diagnostic Mammogram, [facility]. 09/30/2019 Bilateral Diagnostic Mammogram, [facility]. Findings: The area of palpable concern of the right breast, the lower outer quadrant of the right breast, the axilla of the right breast and the retroareolar of the right breast were scanned. Targeted ultrasound right breast lower-outer quadrant 6:00 to 9:00 including the subareolar region and maxilla. There is no solid or cystic lesion with particular attention to the patient's 7:00 palpable site. Overall Assessment: Negative, BI-RAD 1 Management: Screening Mammogram of both breasts in 1 year. Further clinical management of any suspicious palpable abnormalities. Patient should continue monthly self breast exams. Results were given to the patient verbally at the time of exam. Electronically signed and approved by: Caesar Flores M.D. Radiologist
== END | disposition home or self-care (01) ==
LOC: RADMAMWWP 07:06
PROVIDERS: ATTEND Obstetrics & Gynecology
DX: N63.10 Unspecified lump in the right breast, unspecified quadrant (principal); N63.20 Unspecified lump in the left breast, unspecified quadrant; N64.4 Mastodynia
CPT/HCPCS: 77062; 77066

== ENCOUNTER → 2023-06-15 | Outpatient (CLI) | payer BC ==
[2023-06-15 10:56] LABS: Basophils # (A) 0.04 X 10*3/uL (0.00-0.10); Basophils % (A) 0.6 %; Eosinophils # (A) 0.19 X 10*3/uL (0.04-0.35); HCT 35.4 % (37.2-46.3); HGB 10.8 d/dL (12.0-15.0); Lymphocytes # (A) 2.23 X 10*3/uL (0.90-5.00); Lymphocytes % (A) 35.2 %; MCH 23.4 pg (27.0-32.0); MCHC 30.5 d/dL (32.0-37.0); MCV 76.8 FL (80.0-97.0); Mean Platelet Volume 8.9 FL (9.5-12.2); Monocytes # (A) 0.31 X 10*3/uL (0.20-1.00); Monocytes % (A) 4.9 %; NRBC Per 100 WBC 0 X 10*3/uL (0.00-0.01); Neutrophils # (A) 3.54 X 10*3/uL (1.80-7.70); Platelet Count 319 X 10*3/uL (140-440); RBC 4.61 X 10*6/uL (4.10-5.20); RDW 15.1 % (11.5-14.5); WBC 6.33 X 10*3/uL (4.50-10.00)
[2023-06-15 11:13] LABS: Urine Creatinine 71.7 mg/dL (28.0-217.0)
[2023-06-15 11:28] LABS: BUN/Creat Ratio 12.38 Ratio (12.00-20.00); Blood Urea Nitrogen 9.9 mg/dL (9.0-27.0); Chol/HDL Ratio 4.54 Ratio; Glucose 133 mg/dL (70-110); LDL Cholesterol,Calculated 114.2 mg/dL (0.0-131.0)
[2023-06-15 11:29] LABS: ALT 20 U/L (8-44); AST 18 U/L (13-35); Albumin 4.1 d/dL (3.8-4.9); Albumin/Globulin Ratio 1.86 Ratio (1.60-3.17); Alkaline Phosphatase 77 U/L (41-126); Chloride 104 mmol/L (96-109); Globulin 2.2 d/dL (1.6-3.3); Potassium 4.5 mmol/L (3.5-5.5); Sodium 140 mmol/L (135-145); T4, Free (Free Thyroxine) 0.95 ng/dL (0.80-1.80); Total Bilirubin <0.2 mg/dL (0.3-1.2); Total Protein 6.3 d/dL (6.2-8.2)
== END | disposition home or self-care (01) ==
LOC: LABWHC1 07:05
PROVIDERS: ATTEND Family Medicine
DX: E11.9 Type 2 diabetes mellitus without complications (principal); E78.5 Hyperlipidemia, unspecified; R63.5 Abnormal weight gain
CPT/HCPCS: 36415; 80053; 80061; 82043; 82306; 82570; 83036; 84439; 84443; 85025

== ENCOUNTER 2023-10-14 23:21 | Emergency (ER) | payer BC ==
[2023-10-14 23:43] VITALS: TEMP 98.2
--- NOTE | 2023-10-14 23:48 | ED ---
General Adult HPI - General Chief complaint: Skin/Abscess/Foreign Body Stated complaint: Allergic Reaction, Rash Time Seen by Provider: 10/14/23 23:47 Source: patient Mode of arrival: ambulatory Limitations: no limitations - History of Present Illness Initial comments: 48-year-old female presenting to the ED with a chief complaint of rash. Patient states rash started 8 days ago. States initially have started after recently finishing penicillin. Since onset, patient reports rash has spread. No shortness of breath. Tolerating secretions. States that she saw her physician for this who prescribed her a round of prednisone. Patient reports that she completed this earlier this week. Also notes she has been using Benadryl. Despite this, reports worsening. No chest pain or shortness of breath. No other complaints. - Related Data Home Medications Medication Instructions Recorded Confirmed Calcium Citrate 500 mg PO BID 02/04/18 12/23/18 Multivitamin [Multivitamins Adult 1 each PO DAILY 02/04/18 12/23/18 Gummies] Thiamine [Vitamin B-1] 50 mg PO DAILY 02/04/18 12/23/18 Previous Rx's Medication Instructions Recorded Nystatin 100,000 Unit/gm Powd 1 applic TOPICAL BID #60 powder 12/22/18 [Mycostatin Powder] Allergies Allergy/AdvReac Type Severity Reaction Status Date / Time Sulfa (Sulfonamide Allergy Swelling Verified 10/14/23 23:39 Antibiotics) Review of Systems ROS Statement: Those systems with pertinent positive or pertinent negative responses have been documented in the HPI. ROS Other: All systems not noted in ROS Statement are negative. Past Medical History Past Medical History: Diabetes Mellitus Additional Past Medical History / Comment(s): poly-cystic ovary syndrome, migraines. History of Any Multi-Drug Resistant Organisms: None Reported Past Surgical History: No Surgical Hx Reported, Bariatric Surgery Additional Past Surgical History / Comment(s): egd, gastric bypass 12-21-17 (Dr. Pereira) Past Anesthesia/Blood Transfusion Reactions: Family History of Problems w/ Anesthesia Additional Past Anesthesia/Blood Transfusion Reaction / Comment(s): PT HAS NEVER RECEIVED ANESTHESIA. SISTER=PONV Past Psychological History: Anxiety Smoking Status: Never smoker Past Alcohol Use History: Rare Past Drug Use History: None Reported - Past Family History Mother Family Medical History: No Reported History General Exam - General Exam Comments Initial Comments: Visual Physical Exam Vital signs reviewed General: Well-appearing, nontoxic, no acute distress. Head: Normocephalic, atraumatic Eyes: PERRLA, EOMI ENT: Airway patent Chest: Nonlabored breathing Skin: No visual rash, normal skin tone Neuro: Alert and oriented 3 Musculoskeletal: No gross abnormalities Limitations: no limitations General appearance: alert, in no apparent distress ENT exam: Present: other (Tolerating secretions. No stridor.) Neck exam: Present: normal inspection Respiratory exam: Present: normal lung sounds bilaterally Cardiovascular Exam: Present: regular rate, normal rhythm GI/Abdominal exam: Present: soft Skin exam: Present: urticaria (Urticarial rash on the upper trunk and bilateral upper extremities.) Course Vital Signs 10/14/23 10/15/23 23:30 00:06 Temperature 98.2 F Pulse Rate 90 89 Respiratory 20 15 Rate Blood Pressure 163/104 149/109 O2 Sat by Pulse 100 98 Oximetry Medical Decision Making - Medical Decision Making Was pt. sent in by a medical professional or institution (, PA, ELECTRONICS COMPUTER MECHANIC, urgent care, hospital, or jail...) When possible be specific @ [N] Did you speak to anyone other than the patient for history (EMS, parent, family, police, friend...)? What history was obtained from this source @ [N] Did you review nursing and triage notes (agree or disagree)? Why? @ [I reviewed and agree with nursing and triage note] Were old charts reviewed (outside hosp., previous admission, EMS record, old EKG, old radiological studies, urgent care reports/EKG's, jail records)? Report findings @ [No old charts were reviewe] Differential Diagnosis (chest pain, altered mental status, abdominal pain women, abdominal pain men, vaginal bleeding, weakness, fever, dyspnea, syncope, headache, dizziness, GI bleed, back pain, seizure, CVA, palpatations, mental health, musculoskeletal)? @ SJS, [place], anaphylaxis. This is not meant to be an all-inclusive list. EKG interpreted by me (3pts min.). @ -As above X-rays interpreted by me (1pt min.). @ --[None inman] CT interpreted by me (1pt min.). @ -[None inman] U/S interpreted by me (1pt. min.). @ -[None inman] What testing was considered but not performed or refused? (CT, X-rays, U/S, labs)? Why? @ -[[place]] What meds were considered but not given or refused? Why? @ -[[place]] Did you discuss the management of the patient with other professionals (professionals i.e. , PA, ELECTRONICS COMPUTER MECHANIC, lab, RT, psych nurse, oncology social work, greens picker, teacher, correction officer, case preparer and liner)? Give summary @ -[o] Was smoking cessation discussed for >3mins.? @ -[o] Was critical care preformed (if so, how long)? @ -[o] Were there social determinants of health that impacted care today? How? (Homelessness, low income, unemployed, alcoholism, drug addiction, transportation, low edu. Level, literacy, decrease access to med. care, longterm, rehab)? @ -[o] Was there de-escalation of care discussed even if they declined (Discuss DNR or withdrawal of care, Hospice)? DNR status @ -[o] What co-morbidities impacted this encounter? (DM, HTN, Smoking, COPD, CAD, Cancer, CVA, ARF, Chemo, Hep., AIDS, mental health diagnosis, sleep apnea, morb id obesity)? @ -[[place]] Was patient admitted / discharged? Hospital course, mention meds given and route, prescriptions, significant lab abnormalities, going to OR and other pertinent info. @ -Discharge A 48-year-old female presenting to the ED with ongoing rash for the past 7 days. On exam there is no significant oropharyngeal swelling. Tolerating secretions. No stridor. Exam does show an urticarial rash on the upper extremities and trunk. Patient already completed a round of steroids. Advised continuing antihistamines and follow up with PCP. Discussed return precautions with patient who verbalizes agreement. Undiagnosed new problem with uncertain prognosis? @ -No] Drug Therapy requiring intensive monitoring for toxicity (Heparin, Nitro, Insulin, Cardizem)? @ -No] Were any procedures done? @ -No] Diagnosis/symptom? @ -Rash Acute, or Chronic, or Acute on Chronic? @ -AcuteUncomplicated (without systemic symptoms) or Complicated (systemic symptoms)? @ -Uncomplicated Side ffects of treatment? @ -[No] Excebation, Progression, or Severe Exacerbation? @ -[No] [place]esa threat to life or bodily function? How? (Chest pain, [place], [place], pneumonia, PE, COPD, DKA, ARF, appy, cholecystitis, CVA, Diverticulitis, Homicidal, Suicidal, threat to staff... and all critical care pts) @ -[No] Disposition Clinical Impression: Rash Disposition: HOME SELF-CARE Condition: Good Additional Instructions: Please return to the ER with new/worsening symptoms. Follow up with your primary care provider. Is patient prescribed a controlled substance at d/c from ED?: No Referrals: Winston Saez DO [Primary Care Provider] - 1-2 days Time of Disposition: 00:45
[2023-10-15 01:11] VITALS: BP 160/91; PULSE 80; RESP 18
== END 2023-10-15 01:15 | disposition home or self-care (01) ==
LOC: EC 23:21
DX: L50.9 Urticaria, unspecified (principal); E11.9 Type 2 diabetes mellitus without complications; Z88.2 Allergy status to sulfonamides
CPT/HCPCS: 99283

== ENCOUNTER → 2024-12-28 | Outpatient (CLI) | payer BC ==
[2024-12-28 16:51] VITALS: BP 155/91; PULSE 84; RESP 16; TEMP 97.8; BMI 25.7
--- NOTE | 2024-12-28 17:04 | P.HPBAR ---
Bariatric H&P - History & Physicial H&P Date: 12/28/24 History & Physicial: Visit/CC: Patient initial contact: 06/13/17 Initial weight: 114.85 kg Initial weight in pounds: Height: 5 ft 6 in Initial BMI: Last weight: Current weight: 72.121 kg Current weight in pounds: Current BMI: Bradford body weight (based on NIH guidelines): Excess body weight loss: The patient is a 49 year-old F who presents for Bariatric Assessment. H. 270 pounds. L. 159 pounds. Zepbound 1 year ago. She had gained during COVID. Medicine is [facility]. She is due for labs. Needs labs. No belly pain. Wants skin removal. Wants to lose 10 more pounds. Monitor Car Operator not seen. No ERX for skin yet. Occasional back pain. Has skin grooming problems. Nystatin powder. Pictures. July time frame. Past Medical History Past Medical History: Diabetes Mellitus Additional Past Medical History / Comment(s): poly-cystic ovary syndrome, migraines. No longer considered DM-per pcp History of Any Multi-Drug Resistant Organisms: None Reported Past Surgical History: Bariatric Surgery Additional Past Surgical History / Comment(s): egd, gastric bypass 12-21-17 (Dr. Pereira) Past Anesthesia/Blood Transfusion Reactions: Family History of Problems w/ Anesthesia Additional Past Anesthesia/Blood Transfusion Reaction / Comm: PT HAS NEVER RECEIVED ANESTHESIA. SISTER=PONV Past Psychological History: Anxiety Additional Psychological History / Comment(s): OCCASIONAL ANXIETY Smoking Status: Never smoker Past Alcohol Use History: Rare Past Drug Use History: None Reported - Past Family History Mother Family Medical History: No Reported History Bariatric Checklist Checklist: Plan: Checklist: EGD: 1. Hiatal hernia: 2. H. Pylori: HgbA1c: Vitamin D: Smoking: Never smoker Primary care physician referral: Dr Saez Psychiatry clearance: Cardiology clearance: Sleep study: Diet journal: VTE risk score: VTE risk level: Rehab needs at discharge:
== END ==
LOC: BARWHC3 16:21
PROVIDERS: ATTEND Surgery Plastic and Reconstructive Surgery
DX: E66.01 Morbid (severe) obesity due to excess calories (principal); Z88.2 Allergy status to sulfonamides; Z88.0 Allergy status to penicillin; Z68.25 Body mass index [BMI] 25.0-25.9, adult
CPT/HCPCS: 99211

== ENCOUNTER → 2025-01-20 | Outpatient (CLI) | payer BC ==
[2025-01-20 16:52] LABS: INR 0.9 (<1.2); Prothrombin Time 9.9 sec (10.0-12.5)
[2025-01-20 17:07] LABS: Partial Thromboplastin Time 21.7 sec (22.0-30.0)
[2025-01-21 01:27] LABS: HCT 34.6 % (37.2-46.3); HGB 10.7 g/dL (12.0-15.0); MCH 25.3 pg (27.0-32.0); MCHC 30.9 g/dL (32.0-37.0); MCV 81.8 FL (80.0-97.0); Mean Platelet Volume 9.6 FL (9.5-12.2); NRBC Per 100 WBC 0 X 10*3/uL (0.00-0.01); Platelet Count 321 X 10*3/uL (140-440); RBC 4.23 X 10*6/uL (4.10-5.20); RDW 15.9 % (11.5-14.5); WBC 4.79 X 10*3/uL (4.50-10.00)
[2025-01-21 02:09] LABS: Prealbumin 23.2 mg/dL (18.0-42.0)
[2025-01-21 02:10] LABS: % Iron Saturation 3.33 (12.00-45.00); Chol/HDL Ratio 3.31 Ratio; Iron 17 UG/DL (50-170); Magnesium 2.2 mg/dL (1.5-2.4); Phosphorus 3.7 mg/dL (2.4-5.1); Total Iron Binding Capacity 510 UG/DL (228-460)
[2025-01-21 02:11] LABS: ALT 20 U/L (8-44); AST 21 U/L (13-35); Albumin 4.2 g/dL (3.8-4.9); Alkaline Phosphatase 55 U/L (41-126); BUN/Creat Ratio 19.62 Ratio (12.00-20.00); Blood Urea Nitrogen 15.7 mg/dL (9.0-27.0); Calcium 9.1 mg/dL (8.7-10.3); Carbon Dioxide 23.5 mmol/L (21.6-31.8); Chloride 104 mmol/L (96-109); Ferritin 6.2 ng/mL (10.0-291.0); Glucose 114 mg/dL (70-110); LDL Cholesterol,Calculated 94.2 mg/dL (0.0-131.0); Potassium 4.5 mmol/L (3.5-5.5); Sodium 140 mmol/L (135-145); Total Bilirubin <0.2 mg/dL (0.3-1.2); Total Protein 6.2 g/dL (6.2-8.2)
== END | disposition home or self-care (01) ==
LOC: LABWHC1 15:17
PROVIDERS: ATTEND Surgery Plastic and Reconstructive Surgery
DX: E55.9 Vitamin D deficiency, unspecified (principal); E66.01 Morbid (severe) obesity due to excess calories; E44.0 Moderate protein-calorie malnutrition; E89.1 Postprocedural hypoinsulinemia; E45 Retarded development following protein-calorie malnutrition; D50.8 Other iron deficiency anemias; D50.9 Iron deficiency anemia, unspecified; K74.1 Hepatic sclerosis; K50.90 Crohn's disease, unspecified, without complications; N19 Unspecified kidney failure; T56.894A Toxic effect of other metals, undetermined, initial encounter
CPT/HCPCS: 36415; 80053; 80061; 82306; 82525; 82607; 82728; 82746; 83036; 83540; 83550; 83735; 83970; 84100; 84134; 84255; 84425; 84443; 84590; 84630; 85027; 85610; 85730